=== PATIENT | male | born 1950 | race Caucasian/White ===

== ENCOUNTER 2016-04-24 22:50 | Emergency (ER) | payer MEDICARE, MEDICAID ==
[2016-04-25] MEDS ORDERED: ACETAMINOPHEN 325 MG TAB As Ordered ONE (00:10)
[2016-04-25 00:39] LABS: BASO # 0.2 K/mm3 (0.0-0.2); BASO % 1.5 % (0.0-1.0); EOS # 0.3 K/mm3 (0.0-0.50); EOS % 2.2 % (0.0-3.0); LARGE UNSTAINED CELL # 0.4 K/mm3 (0.0-0.4); LARGE UNSTAINED CELL % 3.2 % (0.0-4.0); LYMPH # 5.6 K/mm3 (1.5-4.5); LYMPH % 43.3 % (24.0-44.0); MEAN CORPUSCULAR HEMOGLOBIN 29.9 pg (27.0-33.0); MEAN CORPUSCULAR HGB CONC 34.2 g/dl (32.0-36.5); MEAN CORPUSCULAR VOLUME 87.4 fl (80.0-96.0); MONO # 0.7 K/mm3 (0.0-0.8); MONO % 5.7 % (0.0-5.0); NEUTROPHILS # 5.3 K/mm3 (1.8-7.7); PLATELET COUNT, AUTOMATED 237 k/mm3 (150-450); RED CELL DISTRIBUTION WIDTH 14.1 % (11.5-14.5)
[2016-04-25 01:09] LABS: ALBUMIN 4.1 GM/DL (3.2-5.2); ALBUMIN/GLOBULIN RATIO 0.95 (1.00-1.93); ALKALINE PHOSPHATASE 64 U/L (45-117); ALT/SGPT 66 U/L (12-78); ANION GAP 7 MEQ/L (8-16); AST/SGOT 30 U/L (15-37); BILIRUBIN,DIRECT < 0.1 MG/DL (0.0-0.2); BILIRUBIN,TOTAL 0.3 MG/DL (0.2-1.0); BLOOD UREA NITROGEN 18 MG/DL (7-18); CALCIUM LEVEL 9.4 MG/DL (8.8-10.2); CARBON DIOXIDE LEVEL 30 MEQ/L (21-32); CHLORIDE LEVEL 101 MEQ/L (98-107); GLOMERULAR FILTRATION RATE > 60.0 (>49); GLUCOSE, FASTING 97 MG/DL (80-110); POTASSIUM SERUM 3.6 MEQ/L (3.5-5.1); SODIUM LEVEL 138 MEQ/L (136-145); TOTAL PROTEIN 8.4 GM/DL (6.4-8.2)
--- NOTE | 2016-04-25 01:31 | EDDOCDS ---
Nurse's Notes [facility] Name: Mark Robert Age: 65 yrs Sex: Male : 1950 Arrival Date: 04/24/2016 Time: 22:50 Bed Triage 3 Private MD: Ashli Fisher. Diagnosis: Generalized abdominal pain;Constipation Presentation: 04/24 22:54 Presenting complaint: Patient states: Patient reports pain in abdomen and back. Patient jmb reports pain has been present for a few days. Nothing has changed over past couple days. Patient denies taking anything for pain. Patient denies eating anything different that would cause abdominal pain. Adult Sepsis Screening: The patient does not have new or worsening altered mentation. Patient's respiratory rate is less than 22. Systolic blood pressure is greater than 100. Patient has a qSOFA score of 0- Negative Sepsis Screen. Suicide/Homicide risk assessment- the patient denies having any suicidal and/or homicidal ideations and does not present with any other emotional, behavioral or mental health complaints. Status: Patient is not a business services representative or dependent. Transition of care: patient was not received from another setting of care. 22:54 Acuity: KATHI Level 3 b 22:54 Method Of Arrival: Walkin/Carried/Asstd jmb Triage Assessment: 22:59 General: Appears in no apparent distress, Behavior is appropriate for age. Pain: jmb Location: back and abdomen Pain currently is 5 out of 10 on a pain scale. Neurological: Level of Consciousness is awake, alert, obeys commands, Oriented to person, place, time, Speech is normal, Facial symmetry appears normal, Facial symmetry: tongue is midline. Respiratory: Airway is patent Respiratory effort is even, unlabored, Respiratory pattern is regular, symmetrical. GI: Abdomen is non- distended. Derm: Skin is pink, warm & dry. Musculoskeletal: Range of motion intact in all extremities. Historical: - Allergies: No known drug Allergies; - Home Meds: 1. metformin 1,000 mg Oral tab 1 tab 2 times per day 2. Spiriva with HandiHaler 18 mcg Inhl CpDv 1 cap once daily 3. Vitamin D2 50,000 unit oral cap monthly 4. glipizide 5 mg Oral tab 1 tab once daily 5. cetirizine 10 mg oral tab 1 tab once daily 6. paroxetine HCl 40 mg Oral tab 1 tab once daily 7. doxazosin 8 mg oral tab 1 tab once daily 8. metoprolol tartrate 50 mg Oral tab 0.5 tab once daily 9. lisinopril 40 mg Oral tab 1 tab once daily 10. clopidogrel 75 mg oral tab 1 tab once daily 11. amlodipine 5 mg Oral tab 1 tab once daily 12. aspirin 81 mg Oral grps 1 tab once daily 13. lansoprazole 30 mg oral cpDR 14. glipizide 10 mg Oral tab 1 tab once daily 15. gemfibrozil 600 mg Oral tab 1 tab daily - PMHx: Anxiety; CAD; Depression; Diabetes - NIDDM: controlled; Hypertension; GERD; - PSHx: none; - Social history: Smoking status: Patient uses tobacco products, heavy tobacco smoker. No barriers to communication noted, The patient speaks fluent [place] Island[place], Speaks appropriately for age. - Family history: Not pertinent. - : The pt / caregiver states he / she is not on anticoagulants. Home medication list is obtained from the patient. - Exposure Risk Screening:: None identified. Screenin/06 00:58 Screening information is obtained from the patient. Fall risk: No risks identified. jmb Assistance ADL's: requires no assistance with activities of daily living. Abuse/DV Screen: The patient / caregiver reports he/she is: not in a situation that causes fear, pain or injury. Nutritional screening: No deficits noted. home support is adequate. 01:28 Advance Directives: Currently, there is no health care proxy. There is no active DNR jmb order. There is no living will. There is no Power of Connection Worker. Assessment: 00:58 General: Appears in no apparent distress, Behavior is appropriate for age, cooperative. jmb Pain: Location: abdomen and back Pain currently is 2 out of 10 on a pain scale. Neurological: Level of Consciousness is awake, alert, obeys commands, Oriented to person, place, time, Speech is normal, Facial symmetry appears normal, Facial symmetry: tongue is midline. Cardiovascular: Capillary refill < 3 seconds Heart tones present. Respiratory: Airway is patent Respiratory effort is even, Respiratory pattern is regular. GI: Abdomen is obese, Bowel sounds present X 4 quads. Abd is soft X 4 quads. Derm: Skin is pink, warm & dry. Musculoskeletal: Range of motion intact in all extremities. 01:28 General: Patient instructed on discharge instructions. Patient asked if there were any b questions regarding discharge, patient stated no. Patient signed discharge instructions. Patient discharged in stable condition.. Vital Signs: 04/24 22:52 BP 152 / 78; Pulse 68; Resp 18 S; Temp 96.3(O); Pulse Ox 98% on R/A; Weight 95.25 kg jmb (R); Height 5 ft. 7 in. (170.18 cm) (R); Pain 7/10; 04/25 01:28 BP 140 / 78; Pulse 70; Resp 18; Temp 97.0(O); Pulse Ox 98% on R/A; Pain 0/10; jmb 04/24 22:52 Body Mass Index 32.89 (95.25 kg, 170.18 cm) [facility] Vitals: 04/24 22:52 Log In Time: April 24, 2016 at 22:52. gr2 ED Course: 22:51 Patient visited by Jack Modi. gr2 22:51 Ashli Fisher. is Private Physician. gr2 22:51 Patient moved to Waiting gr2 22:53 Patient visited by Jack Modi. gr2 22:53 Patient moved to Pre RCE gr2 22:55 Triage Initiated jmb 23:10 Patient moved to Triage 3 jmb 23:40 Scotty Lim PA is PHCP. mo1 23:40 Stuart Jeronimo DO is Attending Physician. mo1 04/25 00:02 Patient visited by Scotty Lim PA. mo1 00:26 Basic Metabolic Profile Sent. jmb 00:26 CBC with Diff Sent. jmb 00:26 Lipase Sent. jmb 00:26 Liver Profile Sent. jmb 00:26 Urinalysis Sent. jmb 00:26 Urine Culture Sent. jmb 00:58 The patient / caregiver is instructed regarding the plan of care and ED course. jmb 00:58 No IV's were initiated during this patient's visit. No procedures done that require b assistance. Labs drawn. (by ED staff). Sent per order to lab. 01:00 Patient visited by Michele Ivy RN. jmb 01:24 Ashli Fisher. is Referral Physician. mo1 Administered Medications: 00:12 Drug: Acetaminophen 975 mg [acetaminophen 325 mg tablet (3 tabs)] Route: PO; jmb Order Results: Lab Order: Basic Metabolic Profile; SPEC'M 04/25/16 00:22 Test: GLUCOSE, FASTING; Value: 97; Range: 80-110; Units: MG/DL; Status: F Test: BLOOD UREA NITROGEN; Value: 18; Range: 7-18; Units: MG/DL; Status: F Test: CREATININE FOR GFR; Value: 0.80; Range: 0.70-1.30; Units: MG/DL; Status: F Test: GLOMERULAR FILTRATION RATE; Value: > 60.0; Range: >49; Status: F Test: SODIUM LEVEL; Value: 138; Range: 136-145; Units: MEQ/L; Status: F Test: POTASSIUM SERUM; Value: 3.6; Range: 3.5-5.1; Units: MEQ/L; Status: F Test: CHLORIDE LEVEL; Value: 101; Range: 98-107; Units: MEQ/L; Status: F Test: CARBON DIOXIDE LEVEL; Value: 30; Range: 21-32; Units: MEQ/L; Status: F Test: ANION GAP; Value: 7; Range: 8-16; Abnormal: Below low normal; Units: MEQ/L; Status: F Test: CALCIUM LEVEL; Value: 9.4; Range: 8.8-10.2; Units: MG/DL; Status: F Test Note: ; Units are mL/min/1.73 m2 Chronic Kidney Disease Staging per NKF: Stage I & II GFR >=60 Normal to Mildly Decreased Stage III GFR 30-59 Moderately Decreased Stage IV GFR 15-29 Severely Decreased Stage V GFR <15 Very Little GFR Left ESRD GFR <15 on [employer] Lab Order: CBC with Diff; SPEC'M 04/25/16 00:22 Test: WHITE BLOOD COUNT; Value: 12.0; Range: 4.0-10.0; Abnormal: Above high normal; Units: K/mm3; Status: F Test: RED BLOOD COUNT; Value: 4.92; Range: 4.30-6.10; Units: M/mm3; Status: F Test: HEMOGLOBIN; Value: 14.7; Range: 14.0-18.0; Units: g/dl; Status: F Test: HEMATOCRIT; Value: 43.0; Range: 42.0-52.0; Units: %; Status: F Test: MEAN CORPUSCULAR VOLUME; Value: 87.4; Range: 80.0-96.0; Units: fl; Status: F Test: MEAN CORPUSCULAR HEMOGLOBIN; Value: 29.9; Range: 27.0-33.0; Units: pg; Status: F Test: MEAN CORPUSCULAR HGB CONC; Value: 34.2; Range: 32.0-36.5; Units: g/dl; Status: F Test: RED CELL DISTRIBUTION WIDTH; Value: 14.1; Range: 11.5-14.5; Units: %; Status: F Test: PLATELET COUNT, AUTOMATED; Value: 237; Range: 150-450; Units: k/mm3; Status: F Test: NEUTROPHILS %; Value: 44.0; Range: 36.0-66.0; Units: %; Status: F Test: LYMPH %; Value: 43.3; Range: 24.0-44.0; Units: %; Status: F Test: MONO %; Value: 5.7; Range: 0.0-5.0; Abnormal: Above high normal; Units: %; Status: F Test: EOS %; Value: 2.2; Range: 0.0-3.0; Units: %; Status: F Test: BASO %; Value: 1.5; Range: 0.0-1.0; Abnormal: Above high normal; Units: %; Status: F Test: LARGE UNSTAINED CELL %; Value: 3.2; Range: 0.0-4.0; Units: %; Status: F Test: NEUTROPHILS #; Value: 5.3; Range: 1.8-7.7; Units: K/mm3; Status: F Test: LYMPH #; Value: 5.6; Range: 1.5-4.5; Abnormal: Above high normal; Units: K/mm3; Status: F Test: MONO #; Value: 0.7; Range: 0.0-0.8; Units: K/mm3; Status: F Test: EOS #; Value: 0.3; Range: 0.0-0.50; Units: K/mm3; Status: F Test: BASO #; Value: 0.2; Range: 0.0-0.2; Units: K/mm3; Status: F Test: LARGE UNSTAINED CELL #; Value: 0.4; Range: 0.0-0.4; Units: K/mm3; Status: F Test Note: ; A Pathologist review of this differential can help in the evaluation of a differential diagnosis. Please order a Pathologist Review (PATHREVCOMP) if deemed necessary. Results are subject to change if a Pathologist Review is performed. Lab Order: Lipase; SPEC'M 04/25/16 00:22 Test: LIPASE; Value: 317; Range: 73-393; Units: U/L; Status: F Lab Order: Liver Profile; SPEC'M 04/25/16 00:22 Test: AST/SGOT; Value: 30; Range: 15-37; Units: U/L; Status: F Test: ALT/SGPT; Value: 66; Range: 12-78; Units: U/L; Status: F Test: ALKALINE PHOSPHATASE; Value: 64; Range: 45-117; Units: U/L; Status: F Test: BILIRUBIN,TOTAL; Value: 0.3; Range: 0.2-1.0; Units: MG/DL; Status: F Test: BILIRUBIN,DIRECT; Value: < 0.1; Range: 0.0-0.2; Units: MG/DL; Status: F Test: TOTAL PROTEIN; Value: 8.4; Range: 6.4-8.2; Abnormal: Above high normal; Units: GM/DL; Status: F Test: ALBUMIN; Value: 4.1; Range: 3.2-5.2; Units: GM/DL; Status: F Test: ALBUMIN/GLOBULIN RATIO; Value: 0.95; Range: 1.00-1.93; Abnormal: Below low normal; Status: F Lab Order: Urinalysis; SPEC'M 04/25/16 00:17 Test: APPEARANCE, URINE; Value: CLEAR; Range: CLEAR; Status: F Test: COLOR, URINE; Value: STRAW; Range: YELLOW; Status: F Test: PH,URINE; Value: 6.0; Range: 5.0-9.0; Units: UNITS; Status: F Test: SPECIFIC GRAVITY URINE AUTO; Value: 1.005; Range: 1.002-1.035; Status: F Test: PROTEIN, URINE AUTO; Value: NEGATIVE; Range: NEGATIVE; Units: mg/dL; Status: F Test: GLUCOSE, URINE (UA) AUTO; Value: NEGATIVE; Range: NEGATIVE; Units: mg/dL; Status: F Test: KETONE, URINE AUTO; Value: NEGATIVE; Range: NEGATIVE; Units: mg/dL; Status: F Test: UROBILINOGEN, URINE AUTO; Value: 0.2; Range: 0.0-2.0; Units: mg/dL; Status: F Test: BILIRUBIN, URINE AUTO; Value: NEGATIVE; Range: NEGATIVE; Status: F Test: NITRITE, URINE AUTO; Value: NEGATIVE; Range: NEGATIVE; Status: F Test: LEUKOCYTE ESTERASE, URINE AUTO; Value: NEGATIVE; Range: NEGATIVE; Status: F Test: BLOOD, URINE BLOOD; Value: NEGATIVE; Range: NEGATIVE; Status: F Test: WBC, URINE AUTO; Value: 1; Range: 0-3; Units: /HPF; Status: F Test: RBC, URINE AUTO; Value: 3; Range: 0-3; Units: /HPF; Status: F Test: BACTERIA, URINE AUTO; Value: 1+; Range: NEGATIVE; Abnormal: Above high normal; Status: F Test: SQUAMOUS EPITHELIAL CELL UR AU; Value: 0; Range: 0-6; Units: /HPF; Status: F Test: HYALINE CAST, URINE AUTO; Value: 0; Range: 0-1; Units: /LPF; Status: F Outcome: :24 Discharge ordered by Provider. mo1 01:28 Discharge Assessment: Patient awake, alert and oriented x 3. No cognitive and/or jmb functional deficits noted. Patient verbalized understanding of disposition instructions. Patient awake and alert. obeys commands, Oriented to person, place and time. Patient verbalized understanding of disposition instructions. Patient has no functional deficits. patient administered narcotics - no. The following High Risk Discharge criteria are identified: None. Discharged to home ambulatory. Condition: stable. Discharge instructions given to patient, Instructed on discharge instructions, follow up and referral plans. medication usage, Demonstrated understanding of instructions, medications, Pt was receptive of discharge instructions/ teaching. No special radiology studies were completed. Property sent home with patient. 01:29 Patient left the ED. jmb Signatures: Jack Modi gr2 Scotty Lim PA PA mo1 Michele Ivy RN RN varshab Corrections: (The following items were deleted from the chart) 00:04 04/24 22:52 BP 152 / 78; Pulse 68bpm; Resp 18bpm; Spontaneous; Pulse Ox 98% RA; Temp jmb 93.8F Tympanic; 95.25 kg Reported; Height 5 ft. 7 in. Reported; BMI: 32.8; Pain 7/10; gr2 MTDD
--- NOTE | 2016-04-25 01:31 | EDDOCDS ---
Physician Documentation [facility] Name: Mark Robert Age: 65 yrs Sex: Male : 1950 Arrival Date: 04/24/2016 Time: 22:50 Bed Triage 3 Private MD: Ashli Fisher. Disposition: 04/25/16 01:24 Discharged to Home/Self Care. Impression: Generalized abdominal pain, Constipation. - Condition is Stable. - Discharge Instructions: Abdominal Pain, Adult, Constipation, Adult. - Prescriptions for Miralax 17 gram/dose - take 17 gram by ORAL route once daily As needed dilute in 8 ounces of water or juice; 1 bottle. - Medication Reconciliation, Local Pharmacy Hours form. - Follow up: Ashli Fisher.; When: Call to arrange an appointment; Reason: Recheck today's complaints, Continuance of care. - Problem is new. - Symptoms are unchanged. Historical: - Allergies: No known drug Allergies; - Home Meds: 1. metformin 1,000 mg Oral tab 1 tab 2 times per day 2. Spiriva with HandiHaler 18 mcg Inhl CpDv 1 cap once daily 3. Vitamin D2 50,000 unit oral cap monthly 4. glipizide 5 mg Oral tab 1 tab once daily 5. cetirizine 10 mg oral tab 1 tab once daily 6. paroxetine HCl 40 mg Oral tab 1 tab once daily 7. doxazosin 8 mg oral tab 1 tab once daily 8. metoprolol tartrate 50 mg Oral tab 0.5 tab once daily 9. lisinopril 40 mg Oral tab 1 tab once daily 10. clopidogrel 75 mg oral tab 1 tab once daily 11. amlodipine 5 mg Oral tab 1 tab once daily 12. aspirin 81 mg Oral grps 1 tab once daily 13. lansoprazole 30 mg oral cpDR 14. glipizide 10 mg Oral tab 1 tab once daily 15. gemfibrozil 600 mg Oral tab 1 tab daily - PMHx: Anxiety; CAD; Depression; Diabetes - NIDDM: controlled; Hypertension; GERD; - PSHx: none; - Social history: Smoking status: Patient uses tobacco products, heavy tobacco smoker. No barriers to communication noted, The patient speaks fluent Yoruba, Speaks appropriately for age. - Family history: Not pertinent. - : The pt / caregiver states he / she is not on anticoagulants. Home medication list is obtained from the patient. - Exposure Risk Screening:: None identified. Vital Signs: 04/24 22:52 BP 152 / 78; Pulse 68; Resp 18 S; Temp 96.3(O); Pulse Ox 98% on R/A; Weight 95.25 kg / jmb 209.99 lbs (R); Height 5 ft. 7 in. (170.18 cm) (R); Pain 7/10; 04/25 01:28 BP 140 / 78; Pulse 70; Resp 18; Temp 97.0(O); Pulse Ox 98% on R/A; Pain 0/10; jmb 04/24 22:52 Body Mass Index 32.89 (95.25 kg, 170.18 cm) [facility] MDM: 00:08 Acetaminophen Tablet 975 mg PO once ordered. mo1 00:10 Basic Metabolic Profile Ordered. EDMS 00:10 CBC with Diff Ordered. EDMS 00:10 Lipase Ordered. EDMS 00:10 Liver Profile Ordered. EDMS 00:10 Urinalysis Ordered. EDMS 00:10 Urine Culture Ordered. EDMS 00:10 Abdomen, Flat\E\Upright,PA Chest Ordered. EDMS 00:10 NOTHING BY MOUTH+DIET ordered. EDMS 00:59 Urinalysis Reviewed. mo1 01:13 Financial registration complete. [facility] 01:17 Basic Metabolic Profile Reviewed. mo1 01:17 CBC with Diff Reviewed. mo1 01:17 Liver Profile Reviewed. mo1 01:17 Lipase Reviewed. mo1 Administered Medications: 00:12 Drug: Acetaminophen 975 mg [acetaminophen 325 mg tablet (3 tabs)] Route: PO; lorena Signatures: Dispatcher [employer] EDMS Scotty Lim PA PA mo1 Michele Ivy,RN RN Elyse Bryne [facility] MTDD
--- NOTE | 2016-04-25 08:41 | REP ---
Clinical: Epigastric and abdominal pain. Technique: Upright view of the chest with supine and upright views of the abdomen and pelvis. Findings: Frontal upright view of the chest demonstrates chronic areas of linear fibro atelectatic change in the right mid lung zone and left base without acute cardiopulmonary process or free air below the diaphragm to suspect pneumoperitoneum. Supine and upright views of the abdomen and pelvis demonstrate nonspecific bowel gas pattern without obstruction or perforation. Evidence for prior ventral hernia repair. No organomegaly. No abnormal calcifications. Skeletal structures normal for age. Impression: Nonspecific bowel gas pattern. Signed by Eddy Vee MD 04/25/2016 08:32 A
--- NOTE | 2016-04-27 02:31 | EDDOCDS ---
Physician Documentation [facility] Name: Mark Robert Age: 65 yrs Sex: Male : 1950 Arrival Date: 04/24/2016 Time: 22:50 Bed Triage 3 Private MD: Ashli Fisher. Disposition: 04/25/16 01:24 Discharged to Home/Self Care. Impression: Generalized abdominal pain, Constipation. - Condition is Stable. - Discharge Instructions: Abdominal Pain, Adult, Constipation, Adult. - Prescriptions for Miralax 17 gram/dose - take 17 gram by ORAL route once daily As needed dilute in 8 ounces of water or juice; 1 bottle. - Medication Reconciliation, Local Pharmacy Hours form. - Follow up: Ashli Fisher.; When: Call to arrange an appointment; Reason: Recheck today's complaints, Continuance of care. - Problem is new. - Symptoms are unchanged. Historical: - Allergies: No known drug Allergies; - Home Meds: 1. metformin 1,000 mg Oral tab 1 tab 2 times per day 2. Spiriva with HandiHaler 18 mcg Inhl CpDv 1 cap once daily 3. Vitamin D2 50,000 unit oral cap monthly 4. glipizide 5 mg Oral tab 1 tab once daily 5. cetirizine 10 mg oral tab 1 tab once daily 6. paroxetine HCl 40 mg Oral tab 1 tab once daily 7. doxazosin 8 mg oral tab 1 tab once daily 8. metoprolol tartrate 50 mg Oral tab 0.5 tab once daily 9. lisinopril 40 mg Oral tab 1 tab once daily 10. clopidogrel 75 mg oral tab 1 tab once daily 11. amlodipine 5 mg Oral tab 1 tab once daily 12. aspirin 81 mg Oral grps 1 tab once daily 13. lansoprazole 30 mg oral cpDR 14. glipizide 10 mg Oral tab 1 tab once daily 15. gemfibrozil 600 mg Oral tab 1 tab daily - PMHx: Anxiety; CAD; Depression; Diabetes - NIDDM: controlled; Hypertension; GERD; - PSHx: none; - Social history: Smoking status: Patient uses tobacco products, heavy tobacco smoker. No barriers to communication noted, The patient speaks fluent [place], Speaks appropriately for age. - Family history: Not pertinent. - : The pt / caregiver states he / she is not on anticoagulants. Home medication list is obtained from the patient. - Exposure Risk Screening:: None identified. Vital Signs: 04/24 22:52 BP 152 / 78; Pulse 68; Resp 18 S; Temp 96.3(O); Pulse Ox 98% on R/A; Weight 95.25 kg / jmb 209.99 lbs (R); Height 5 ft. 7 in. (170.18 cm) (R); Pain 7/10; 04/25 01:28 BP 140 / 78; Pulse 70; Resp 18; Temp 97.0(O); Pulse Ox 98% on R/A; Pain 0/10; jmb 04/24 22:52 Body Mass Index 32.89 (95.25 kg, 170.18 cm) [facility] MDM: 00:08 Acetaminophen Tablet 975 mg PO once ordered. mo1 00:10 Basic Metabolic Profile Ordered. EDMS 00:10 CBC with Diff Ordered. EDMS 00:10 Lipase Ordered. EDMS 00:10 Liver Profile Ordered. EDMS 00:10 Urinalysis Ordered. EDMS 00:10 Urine Culture Ordered. EDMS 00:10 Abdomen, Flat\E\Upright,PA Chest Ordered. EDMS 00:10 NOTHING BY MOUTH+DIET ordered. EDMS 00:59 Urinalysis Reviewed. mo1 01:13 Financial registration complete. [facility] 01:17 Basic Metabolic Profile Reviewed. mo1 01:17 CBC with Diff Reviewed. mo1 01:17 Liver Profile Reviewed. mo1 01:17 Lipase Reviewed. mo1 02:02 [facility] Payment Agreement was scanned into [employer] and attached to record. [facility] 08:13 T-Sheet-- Draft Copy was scanned into [employer] and attached to record. gb Administered Medications: 00:12 Drug: Acetaminophen 975 mg [acetaminophen 325 mg tablet (3 tabs)] Route: PO; lorena Signatures: Dispatcher [employer] EDAL Meceh Vigil, Reg Reg gb Scotty Lim PA PA mo1 Michele Ivy,MADELIN RN Elyse Byrne [facility] The chart was reviewed and I authenticate all verbal orders and agree with the evaluation and treatment provided.Attachments: 02:02 [facility] Payment Agreement [facility] 08:13 T-Sheet-- Draft Copy gb Chart Complete MTDD
--- NOTE | 2016-04-27 02:31 | EDDOCDS ---
Physician Documentation [facility] Name: Mark Robert Age: 65 yrs Sex: Male : 1950 Arrival Date: 04/24/2016 Time: 22:50 Bed Triage 3 Private MD: Ashli Fisher. Disposition: 04/25/16 01:24 Discharged to Home/Self Care. Impression: Generalized abdominal pain, Constipation. - Condition is Stable. - Discharge Instructions: Abdominal Pain, Adult, Constipation, Adult. - Prescriptions for Miralax 17 gram/dose - take 17 gram by ORAL route once daily As needed dilute in 8 ounces of water or juice; 1 bottle. - Medication Reconciliation, Local Pharmacy Hours form. - Follow up: Ashli Fisher.; When: Call to arrange an appointment; Reason: Recheck today's complaints, Continuance of care. - Problem is new. - Symptoms are unchanged. Historical: - Allergies: No known drug Allergies; - Home Meds: 1. metformin 1,000 mg Oral tab 1 tab 2 times per day 2. Spiriva with HandiHaler 18 mcg Inhl CpDv 1 cap once daily 3. Vitamin D2 50,000 unit oral cap monthly 4. glipizide 5 mg Oral tab 1 tab once daily 5. cetirizine 10 mg oral tab 1 tab once daily 6. paroxetine HCl 40 mg Oral tab 1 tab once daily 7. doxazosin 8 mg oral tab 1 tab once daily 8. metoprolol tartrate 50 mg Oral tab 0.5 tab once daily 9. lisinopril 40 mg Oral tab 1 tab once daily 10. clopidogrel 75 mg oral tab 1 tab once daily 11. amlodipine 5 mg Oral tab 1 tab once daily 12. aspirin 81 mg Oral grps 1 tab once daily 13. lansoprazole 30 mg oral cpDR 14. glipizide 10 mg Oral tab 1 tab once daily 15. gemfibrozil 600 mg Oral tab 1 tab daily - PMHx: Anxiety; CAD; Depression; Diabetes - NIDDM: controlled; Hypertension; GERD; - PSHx: none; - Social history: Smoking status: Patient uses tobacco products, heavy tobacco smoker. No barriers to communication noted, The patient speaks fluent Wolof, Speaks appropriately for age. - Family history: Not pertinent. - : The pt / caregiver states he / she is not on anticoagulants. Home medication list is obtained from the patient. - Exposure Risk Screening:: None identified. Vital Signs: 04/24 22:52 BP 152 / 78; Pulse 68; Resp 18 S; Temp 96.3(O); Pulse Ox 98% on R/A; Weight 95.25 kg / jmb 209.99 lbs (R); Height 5 ft. 7 in. (170.18 cm) (R); Pain 7/10; 04/25 01:28 BP 140 / 78; Pulse 70; Resp 18; Temp 97.0(O); Pulse Ox 98% on R/A; Pain 0/10; jmb 04/24 22:52 Body Mass Index 32.89 (95.25 kg, 170.18 cm) [facility] MDM: 00:08 Acetaminophen Tablet 975 mg PO once ordered. mo1 00:10 Basic Metabolic Profile Ordered. EDMS 00:10 CBC with Diff Ordered. EDMS 00:10 Lipase Ordered. EDMS 00:10 Liver Profile Ordered. EDMS 00:10 Urinalysis Ordered. EDMS 00:10 Urine Culture Ordered. EDMS 00:10 Abdomen, Flat\E\Upright,PA Chest Ordered. EDMS 00:10 NOTHING BY MOUTH+DIET ordered. EDMS 00:59 Urinalysis Reviewed. mo1 01:13 Financial registration complete. [facility] 01:17 Basic Metabolic Profile Reviewed. mo1 01:17 CBC with Diff Reviewed. mo1 01:17 Liver Profile Reviewed. mo1 01:17 Lipase Reviewed. mo1 02:02 [facility] Payment Agreement was scanned into [employer] and attached to record. [facility] 08:13 T-Sheet-- Draft Copy was scanned into [employer] and attached to record. gb Administered Medications: 00:12 Drug: Acetaminophen 975 mg [acetaminophen 325 mg tablet (3 tabs)] Route: PO; lorena Signatures: Dispatcher [employer] EDWI Meche Vigil, Reg Reg gb Scotty Lim PA PA mo1 Michele Ivy,MADELIN RN Elyse Byrne [facility] The chart was reviewed and I authenticate all verbal orders and agree with the evaluation and treatment provided.Attachments: 02:02 [facility] Payment Agreement [facility] 08:13 T-Sheet-- Draft Copy gb Chart Complete MTDD
--- NOTE | 2016-04-27 02:31 | EDDOCDS ---
Nurse's Notes [facility] Name: Mark Robert Age: 65 yrs Sex: Male : 1950 Arrival Date: 04/24/2016 Time: 22:50 Bed Triage 3 Private MD: Ashli Fisher. Diagnosis: Generalized abdominal pain;Constipation Presentation: 04/24 22:54 Presenting complaint: Patient states: Patient reports pain in abdomen and back. Patient jmb reports pain has been present for a few days. Nothing has changed over past couple days. Patient denies taking anything for pain. Patient denies eating anything different that would cause abdominal pain. Adult Sepsis Screening: The patient does not have new or worsening altered mentation. Patient's respiratory rate is less than 22. Systolic blood pressure is greater than 100. Patient has a qSOFA score of 0- Negative Sepsis Screen. Suicide/Homicide risk assessment- the patient denies having any suicidal and/or homicidal ideations and does not present with any other emotional, behavioral or mental health complaints. Status: Patient is not a marketing services rep or dependent. Transition of care: patient was not received from another setting of care. 22:54 Acuity: KATHI Level 3 b 22:54 Method Of Arrival: Walkin/Carried/Asstd jmb Triage Assessment: 22:59 General: Appears in no apparent distress, Behavior is appropriate for age. Pain: jmb Location: back and abdomen Pain currently is 5 out of 10 on a pain scale. Neurological: Level of Consciousness is awake, alert, obeys commands, Oriented to person, place, time, Speech is normal, Facial symmetry appears normal, Facial symmetry: tongue is midline. Respiratory: Airway is patent Respiratory effort is even, unlabored, Respiratory pattern is regular, symmetrical. GI: Abdomen is non- distended. Derm: Skin is pink, warm & dry. Musculoskeletal: Range of motion intact in all extremities. Historical: - Allergies: No known drug Allergies; - Home Meds: 1. metformin 1,000 mg Oral tab 1 tab 2 times per day 2. Spiriva with HandiHaler 18 mcg Inhl CpDv 1 cap once daily 3. Vitamin D2 50,000 unit oral cap monthly 4. glipizide 5 mg Oral tab 1 tab once daily 5. cetirizine 10 mg oral tab 1 tab once daily 6. paroxetine HCl 40 mg Oral tab 1 tab once daily 7. doxazosin 8 mg oral tab 1 tab once daily 8. metoprolol tartrate 50 mg Oral tab 0.5 tab once daily 9. lisinopril 40 mg Oral tab 1 tab once daily 10. clopidogrel 75 mg oral tab 1 tab once daily 11. amlodipine 5 mg Oral tab 1 tab once daily 12. aspirin 81 mg Oral grps 1 tab once daily 13. lansoprazole 30 mg oral cpDR 14. glipizide 10 mg Oral tab 1 tab once daily 15. gemfibrozil 600 mg Oral tab 1 tab daily - PMHx: Anxiety; CAD; Depression; Diabetes - NIDDM: controlled; Hypertension; GERD; - PSHx: none; - Social history: Smoking status: Patient uses tobacco products, heavy tobacco smoker. No barriers to communication noted, The patient speaks fluent Andorran, Speaks appropriately for age. - Family history: Not pertinent. - : The pt / caregiver states he / she is not on anticoagulants. Home medication list is obtained from the patient. - Exposure Risk Screening:: None identified. Screenin/06 00:58 Screening information is obtained from the patient. Fall risk: No risks identified. jmb Assistance ADL's: requires no assistance with activities of daily living. Abuse/DV Screen: The patient / caregiver reports he/she is: not in a situation that causes fear, pain or injury. Nutritional screening: No deficits noted. home support is adequate. 01:28 Advance Directives: Currently, there is no health care proxy. There is no active DNR jmb order. There is no living will. There is no Power of Turbine Technician. Assessment: 00:58 General: Appears in no apparent distress, Behavior is appropriate for age, cooperative. jmb Pain: Location: abdomen and back Pain currently is 2 out of 10 on a pain scale. Neurological: Level of Consciousness is awake, alert, obeys commands, Oriented to person, place, time, Speech is normal, Facial symmetry appears normal, Facial symmetry: tongue is midline. Cardiovascular: Capillary refill < 3 seconds Heart tones present. Respiratory: Airway is patent Respiratory effort is even, Respiratory pattern is regular. GI: Abdomen is obese, Bowel sounds present X 4 quads. Abd is soft X 4 quads. Derm: Skin is pink, warm & dry. Musculoskeletal: Range of motion intact in all extremities. 01:28 General: Patient instructed on discharge instructions. Patient asked if there were any b questions regarding discharge, patient stated no. Patient signed discharge instructions. Patient discharged in stable condition.. Vital Signs: 04/24 22:52 BP 152 / 78; Pulse 68; Resp 18 S; Temp 96.3(O); Pulse Ox 98% on R/A; Weight 95.25 kg jm (R); Height 5 ft. 7 in. (170.18 cm) (R); Pain 7/10; 04/25 01:28 BP 140 / 78; Pulse 70; Resp 18; Temp 97.0(O); Pulse Ox 98% on R/A; Pain 0/10; jmb 04/24 22:52 Body Mass Index 32.89 (95.25 kg, 170.18 cm) [facility] Vitals: 04/24 22:52 Log In Time: April 24, 2016 at 22:52. gr2 ED Course: 22:51 Patient visited by Jack Modi. gr2 22:51 Ashli Fisher. is Private Physician. gr2 22:51 Patient moved to Waiting gr2 22:53 Patient visited by Jack Modi. gr2 22:53 Patient moved to Pre RCE gr2 22:55 Triage Initiated jmb 23:10 Patient moved to Triage 3 jmb 23:40 Scotty Lim PA is PHCP. mo1 23:40 Stuart Jeronimo DO is Attending Physician. mo1 04/25 00:02 Patient visited by Scotty Lim PA. mo1 00:26 Basic Metabolic Profile Sent. jmb 00:26 CBC with Diff Sent. jmb 00:26 Lipase Sent. jmb 00:26 Liver Profile Sent. jmb 00:26 Urinalysis Sent. jmb 00:26 Urine Culture Sent. jmb 00:58 The patient / caregiver is instructed regarding the plan of care and ED course. jmb 00:58 No IV's were initiated during this patient's visit. No procedures done that require b assistance. Labs drawn. (by ED staff). Sent per order to lab. 01:00 Patient visited by Michele Ivy RN. jmb 01:24 Ashli Fisher. is Referral Physician. mo1 02:02 [facility] Payment Agreement was scanned into [email or web address] and attached to record. [facility] 08:13 T-Sheet-- Draft Copy was scanned into [email or web address] and attached to record. gb 08:42 Abdomen, Flat\E\Upright,PA Chest Returned. EDMS Administered Medications: 00:12 Drug: Acetaminophen 975 mg [acetaminophen 325 mg tablet (3 tabs)] Route: PO; jmb Order Results: Lab Order: Basic Metabolic Profile; SPEC'M 04/25/16 00:22 Test: GLUCOSE, FASTING; Value: 97; Range: 80-110; Units: MG/DL; Status: F Test: BLOOD UREA NITROGEN; Value: 18; Range: 7-18; Units: MG/DL; Status: F Test: CREATININE FOR GFR; Value: 0.80; Range: 0.70-1.30; Units: MG/DL; Status: F Test: GLOMERULAR FILTRATION RATE; Value: > 60.0; Range: >49; Status: F Test: SODIUM LEVEL; Value: 138; Range: 136-145; Units: MEQ/L; Status: F Test: POTASSIUM SERUM; Value: 3.6; Range: 3.5-5.1; Units: MEQ/L; Status: F Test: CHLORIDE LEVEL; Value: 101; Range: 98-107; Units: MEQ/L; Status: F Test: CARBON DIOXIDE LEVEL; Value: 30; Range: 21-32; Units: MEQ/L; Status: F Test: ANION GAP; Value: 7; Range: 8-16; Abnormal: Below low normal; Units: MEQ/L; Status: F Test: CALCIUM LEVEL; Value: 9.4; Range: 8.8-10.2; Units: MG/DL; Status: F Test Note: ; Units are mL/min/1.73 m2 Chronic Kidney Disease Staging per NKF: Stage I & II GFR >=60 Normal to Mildly Decreased Stage III GFR 30-59 Moderately Decreased Stage IV GFR 15-29 Severely Decreased Stage V GFR <15 Very Little GFR Left ESRD GFR <15 on CODING COMPLIANCE SPECIALIST Lab Order: CBC with Diff; SPEC'M 04/25/16 00:22 Test: WHITE BLOOD COUNT; Value: 12.0; Range: 4.0-10.0; Abnormal: Above high normal; Units: K/mm3; Status: F Test: RED BLOOD COUNT; Value: 4.92; Range: 4.30-6.10; Units: M/mm3; Status: F Test: HEMOGLOBIN; Value: 14.7; Range: 14.0-18.0; Units: g/dl; Status: F Test: HEMATOCRIT; Value: 43.0; Range: 42.0-52.0; Units: %; Status: F Test: MEAN CORPUSCULAR VOLUME; Value: 87.4; Range: 80.0-96.0; Units: fl; Status: F Test: MEAN CORPUSCULAR HEMOGLOBIN; Value: 29.9; Range: 27.0-33.0; Units: pg; Status: F Test: MEAN CORPUSCULAR HGB CONC; Value: 34.2; Range: 32.0-36.5; Units: g/dl; Status: F Test: RED CELL DISTRIBUTION WIDTH; Value: 14.1; Range: 11.5-14.5; Units: %; Status: F Test: PLATELET COUNT, AUTOMATED; Value: 237; Range: 150-450; Units: k/mm3; Status: F Test: NEUTROPHILS %; Value: 44.0; Range: 36.0-66.0; Units: %; Status: F Test: LYMPH %; Value: 43.3; Range: 24.0-44.0; Units: %; Status: F Test: MONO %; Value: 5.7; Range: 0.0-5.0; Abnormal: Above high normal; Units: %; Status: F Test: EOS %; Value: 2.2; Range: 0.0-3.0; Units: %; Status: F Test: BASO %; Value: 1.5; Range: 0.0-1.0; Abnormal: Above high normal; Units: %; Status: F Test: LARGE UNSTAINED CELL %; Value: 3.2; Range: 0.0-4.0; Units: %; Status: F Test: NEUTROPHILS #; Value: 5.3; Range: 1.8-7.7; Units: K/mm3; Status: F Test: LYMPH #; Value: 5.6; Range: 1.5-4.5; Abnormal: Above high normal; Units: K/mm3; Status: F Test: MONO #; Value: 0.7; Range: 0.0-0.8; Units: K/mm3; Status: F Test: EOS #; Value: 0.3; Range: 0.0-0.50; Units: K/mm3; Status: F Test: BASO #; Value: 0.2; Range: 0.0-0.2; Units: K/mm3; Status: F Test: LARGE UNSTAINED CELL #; Value: 0.4; Range: 0.0-0.4; Units: K/mm3; Status: F Test Note: ; A Pathologist review of this differential can help in the evaluation of a differential diagnosis. Please order a Pathologist Review (PATHREVCOMP) if deemed necessary. Results are subject to change if a Pathologist Review is performed. Lab Order: Lipase; SPEC'M 04/25/16 00:22 Test: LIPASE; Value: 317; Range: 73-393; Units: U/L; Status: F Lab Order: Liver Profile; SPEC'M 04/25/16 00:22 Test: AST/SGOT; Value: 30; Range: 15-37; Units: U/L; Status: F Test: ALT/SGPT; Value: 66; Range: 12-78; Units: U/L; Status: F Test: ALKALINE PHOSPHATASE; Value: 64; Range: 45-117; Units: U/L; Status: F Test: BILIRUBIN,TOTAL; Value: 0.3; Range: 0.2-1.0; Units: MG/DL; Status: F Test: BILIRUBIN,DIRECT; Value: < 0.1; Range: 0.0-0.2; Units: MG/DL; Status: F Test: TOTAL PROTEIN; Value: 8.4; Range: 6.4-8.2; Abnormal: Above high normal; Units: GM/DL; Status: F Test: ALBUMIN; Value: 4.1; Range: 3.2-5.2; Units: GM/DL; Status: F Test: ALBUMIN/GLOBULIN RATIO; Value: 0.95; Range: 1.00-1.93; Abnormal: Below low normal; Status: F Lab Order: Urinalysis; SPEC'M 04/25/16 00:17 Test: APPEARANCE, URINE; Value: CLEAR; Range: CLEAR; Status: F Test: COLOR, URINE; Value: STRAW; Range: YELLOW; Status: F Test: PH,URINE; Value: 6.0; Range: 5.0-9.0; Units: UNITS; Status: F Test: SPECIFIC GRAVITY URINE AUTO; Value: 1.005; Range: 1.002-1.035; Status: F Test: PROTEIN, URINE AUTO; Value: NEGATIVE; Range: NEGATIVE; Units: mg/dL; Status: F Test: GLUCOSE, URINE (UA) AUTO; Value: NEGATIVE; Range: NEGATIVE; Units: mg/dL; Status: F Test: KETONE, URINE AUTO; Value: NEGATIVE; Range: NEGATIVE; Units: mg/dL; Status: F Test: UROBILINOGEN, URINE AUTO; Value: 0.2; Range: 0.0-2.0; Units: mg/dL; Status: F Test: BILIRUBIN, URINE AUTO; Value: NEGATIVE; Range: NEGATIVE; Status: F Test: NITRITE, URINE AUTO; Value: NEGATIVE; Range: NEGATIVE; Status: F Test: LEUKOCYTE ESTERASE, URINE AUTO; Value: NEGATIVE; Range: NEGATIVE; Status: F Test: BLOOD, URINE BLOOD; Value: NEGATIVE; Range: NEGATIVE; Status: F Test: WBC, URINE AUTO; Value: 1; Range: 0-3; Units: /HPF; Status: F Test: RBC, URINE AUTO; Value: 3; Range: 0-3; Units: /HPF; Status: F Test: BACTERIA, URINE AUTO; Value: 1+; Range: NEGATIVE; Abnormal: Above high normal; Status: F Test: SQUAMOUS EPITHELIAL CELL UR AU; Value: 0; Range: 0-6; Units: /HPF; Status: F Test: HYALINE CAST, URINE AUTO; Value: 0; Range: 0-1; Units: /LPF; Status: F Lab Order: Urine Culture; SPEC'M 04/25/16 00:17 Test: URINE CULTURE; Value: URINE CULTURE RESULT NO GROWTH; Status: F Radiology Order: Abdomen, Flat\E\Upright,PA Chest Test: Abdomen, Flat\E\Upright,PA Chest REASON FOR EXAMINATION: Abdomen Pain; Clinical: Epigastric and abdominal pain.; ; Technique: Upright view of the chest with supine and upright views of the; abdomen and pelvis.; ; Findings: Frontal upright view of the chest demonstrates chronic areas of linear; fibro atelectatic change in the right mid lung zone and left base without acute; cardiopulmonary process or free air below the diaphragm to suspect; pneumoperitoneum. Supine and upright views of the abdomen and pelvis demonstrate; nonspecific bowel gas pattern without obstruction or perforation. Evidence for; prior ventral hernia repair. No organomegaly. No abnormal calcifications.; Skeletal structures normal for age.; ; Impression:; Nonspecific bowel gas pattern.; ; ; Signed by; Eddy Vee MD 04/25/2016 08:32 A; Outcome: 01:24 Discharge ordered by Provider. mo1 01:28 Discharge Assessment: Patient awake, alert and oriented x 3. No cognitive and/or jmb functional deficits noted. Patient verbalized understanding of disposition instructions. Patient awake and alert. obeys commands, Oriented to person, place and time. Patient verbalized understanding of disposition instructions. Patient has no functional deficits. patient administered narcotics - no. The following High Risk Discharge criteria are identified: None. Discharged to home ambulatory. Condition: stable. Discharge instructions given to patient, Instructed on discharge instructions, follow up and referral plans. medication usage, Demonstrated understanding of instructions, medications, Pt was receptive of discharge instructions/ teaching. No special radiology studies were completed. Property sent home with patient. 01:29 Patient left the ED. lorena Signatures: Dispatcher [employer] EDMS Meche Vigil, Reg Reg Jack Cuevas gr2 Scotty Lim PA PA mo1 Michele Ivy,MADELIN RN Elyse Byrne Corrections: (The following items were deleted from the chart) 00:04 01/05 22:52 BP 152 / 78; Pulse 68bpm; Resp 18bpm; Spontaneous; Pulse Ox 98% RA; Temp jmb 93.8F Tympanic; 95.25 kg Reported; Height 5 ft. 7 in. Reported; BMI: 32.8; Pain 7/10; gr2 Chart Complete MTDD
== END 2016-04-25 01:29 | disposition home or self-care (01) ==
LOC: M ED 22:50
DX: F41.9 Anxiety disorder, unspecified (principal); K21.9 Gastro-esophageal reflux disease without esophagitis; I25.10 Atherosclerotic heart disease of native coronary artery without angina pectoris; E11.9 Type 2 diabetes mellitus without complications; I10 Essential (primary) hypertension; Z72.0 Tobacco use; Z79.82 Long term (current) use of aspirin; Z79.899 Other long term (current) drug therapy

== ENCOUNTER 2017-03-04 00:30 | Emergency (ER) | payer MEDICARE, MEDICAID ==
[~2017-03-04] VITALS: Ht 170.2 cm; Wt 93.3 kg
[2017-03-04 00:45] VITALS: BP 102/64
[2017-03-04] MEDS ORDERED: PARO40TA2 (00:58)
[2017-03-04] MEDS ORDERED: DOXA1TAB49 (00:58)
[2017-03-04] MEDS ORDERED: MONT10TA2 (00:58)
[2017-03-04] MEDS ORDERED: RANI150T (00:58)
[2017-03-04] MEDS ORDERED: CLOP75TA2 (00:58)
[2017-03-04] MEDS ORDERED: GEMF600T (00:58)
[2017-03-04] MEDS ORDERED: METO50TA7 (00:58)
[2017-03-04] MEDS ORDERED: INCR1INH (00:58)
[2017-03-04] MEDS ORDERED: FARX1TAB3 (00:58)
[2017-03-04] MEDS ORDERED: GLIP10TA6 (00:58)
[2017-03-04] MEDS ORDERED: TRAD5TAB (00:58)
[2017-03-04] MEDS ORDERED: AMLO5TAB2 (00:58)
[2017-03-04] MEDS ORDERED: [UNRECOGNIZED DRUG - OTHER] (00:58)
[2017-03-04] MEDS ORDERED: METF10004 (00:58)
[2017-03-04] MEDS ORDERED: POLY1POW4 (00:58)
[2017-03-04] MEDS ORDERED: VITA1CAP40 (00:58)
[2017-03-04] MEDS ORDERED: LISI40TAB (00:58)
[2017-03-04] MEDS ORDERED: ASPI81TA18 (00:58)
[2017-03-04] MEDS ORDERED: CETI10TA (00:58)
== END 2017-03-04 03:45 | disposition left against medical advice (07) ==
LOC: M ED 00:30
DX: E11.649 Type 2 diabetes mellitus with hypoglycemia without coma (principal); Z53.21 Procedure and treatment not carried out due to patient leaving prior to being seen by health care provider

== ENCOUNTER → 2017-04-06 | Outpatient (CLI) | payer MEDICARE, MEDICAID ==
[~2017-04-06] MED LIST: AMLO5TAB2; ASPI81TA18; CETI10TA; CLOP75TA2; DOXA1TAB49; FARX1TAB3; GEMF600T; GLIP10TA6; INCR1INH; LISI40TAB; METF10004; METO50TA7; MONT10TA2; PARO40TA2; POLY1POW4; RANI150T; TRAD5TAB; VITA1CAP40; [UNRECOGNIZED DRUG - OTHER]
--- NOTE | 2017-04-06 12:06 | REP ---
BILATERAL SHOULDERS: Three views of bilateral shoulders performed. There is no acute fracture or dislocation. There is mild narrowing and spurring at the left glenohumeral joint. There is moderate narrowing and spurring at the left acromioclavicular joint. There is mild narrowing and spurring at the right glenohumeral joint. There is moderate narrowing and spurring at the right acromioclavicular joint. IMPRESSION: Bilateral degenerative changes as above. Signed by Lul Garcia MD 04/06/2017 05:57 P
--- NOTE | 2017-04-06 12:08 | REP ---
CERVICAL SPINE SERIES: Eight views of the cervical spine are performed. There is no definite fracture or dislocation. C7 is not optimally visualized. It is vaguely visualized on the swimmer's view. There is no prevertebral soft tissue swelling. Disc spaces are relatively well preserved. There is mild diffuse narrowing and sclerosis at the posterior facet joints. There is no compelling radiographic evidence for significant neural foraminal narrowing. IMPRESSION: Mild diffuse degenerative changes at the posterior facet joints. Signed by Lul Garcia MD 04/06/2017 05:57 P
--- NOTE | 2017-04-06 12:09 | REP ---
THORACIC SPINE: AP and lateral views of the thoracic spine are performed. There is no compression fracture or malalignment. There is normal thoracic kyphosis. There is mild diffuse spurring. There is mild disc space narrowing and subchondral sclerosis at all levels. The posterior elements are intact. IMPRESSION: Mild diffuse degenerative changes. Signed by Lul Garcia MD 04/06/2017 05:57 P
== END ==
LOC: M RAD 10:49
PROVIDERS: ATTEND Nurse Practitioner Adult Health
DX: M25.511 Pain in right shoulder (principal); M19.011 Primary osteoarthritis, right shoulder

== ENCOUNTER 2017-05-15 02:47 | Emergency (ER) | payer MEDICARE, MEDICAID | END 2017-05-15 03:59 | disposition left against medical advice (07) | LOC: M ED 02:47 | DX: H92.09 Otalgia, unspecified ear (principal); Z53.21 Procedure and treatment not carried out due to patient leaving prior to being seen by health care provider ==

== ENCOUNTER → 2017-05-19 | Outpatient (REF) | payer MEDICARE, MEDICAID ==
[2017-05-19 11:15] LABS: BASO # 0.1 10^3/uL (0.0-0.2); BASO % 0.4 % (0.0-1.0); EOS # 0.1 10^3/uL (0.0-0.50); EOS % 1.1 % (0.0-3.0); HEMATOCRIT 44.3 % (42.0-52.0); HEMOGLOBIN 14.7 g/dl (14.0-18.0); IMMATURE GRANULOCYTE % 0.3 % (0-0); LYMPH # 3.1 10^3/uL (1.5-4.5); LYMPH % 25.3 % (24.0-44.0); MEAN CORPUSCULAR HEMOGLOBIN 29.9 pg (27.0-33.0); MEAN CORPUSCULAR HGB CONC 33.2 g/dl (32.0-36.5); MONO # 0.8 10^3/uL (0.0-0.8); MONO % 6.6 % (0.0-5.0); NEUTROPHILS # 8.1 10^3/uL (1.8-7.7); NEUTROPHILS % 66.3 % (36.0-66.0); PLATELET COUNT, AUTOMATED 266 10^3/uL (150-450); RED BLOOD COUNT 4.92 10^6/uL (4.30-6.10); RED CELL DISTRIBUTION WIDTH 13.2 % (11.5-14.5); WHITE BLOOD COUNT 12.2 10^3/uL (4.0-10.0)
[2017-05-19 11:38] LABS: ALBUMIN 4.1 GM/DL (3.2-5.2); ALBUMIN/GLOBULIN RATIO 1.11 (1.00-1.93); ALKALINE PHOSPHATASE 70 U/L (45-117); ALT/SGPT 28 U/L (12-78); ANION GAP 7 MEQ/L (8-16); AST/SGOT 18 U/L (7-37); BILIRUBIN,TOTAL 0.3 MG/DL (0.2-1.0); BLOOD UREA NITROGEN 13 MG/DL (7-18); CALCIUM LEVEL 9.5 MG/DL (8.8-10.2); CARBON DIOXIDE LEVEL 30 MEQ/L (21-32); CHLORIDE LEVEL 104 MEQ/L (98-107); CHOLESTEROL LEVEL 181 MG/DL (<200); CHOLESTEROL RISK RATIO 3.934 (<5); CREATININE FOR GFR 0.72 MG/DL (0.70-1.30); GLOMERULAR FILTRATION RATE > 60.0 (>49); GLUCOSE, FASTING 119 MG/DL (70-100); HDL CHOLESTEROL 46 MG/DL (>40); LDL CHOLESTEROL 99.6 MG/DL (<100); NON-HDL-C 135 MG/DL; POTASSIUM SERUM 4.3 MEQ/L (3.5-5.1); SODIUM LEVEL 141 MEQ/L (136-145); TOTAL PROTEIN 7.8 GM/DL (6.4-8.2); TRIGLYCERIDES LEVEL 177 MG/DL (<150)
[2017-05-19 11:43] LABS: ESTIMATED AVERAGE GLUCOSE 169 MG/DL (60-110); HEMOGLOBIN A1c 7.5 %
[2017-05-19 11:50] LABS: CREATININE, URINE < 13.0 MG/DL; MALB URINE SIEMENS 22.3 MG/L
[2017-05-20 11:27] LABS: HIV 1&2 SCREEN CENTAUR NEGATIVE (NEGATIVE)
== END ==
LOC: M LAB REF 10:41
DX: E11.9 Type 2 diabetes mellitus without complications (principal)
CPT/HCPCS: 80053

== ENCOUNTER → 2017-05-28 | Outpatient (CLI) | payer MEDICARE, MEDICAID ==
[~2017-05-28] MED LIST changes: -AMLO5TAB2; -ASPI81TA18; -CETI10TA; -CLOP75TA2; -DOXA1TAB49; -FARX1TAB3; -GEMF600T; -GLIP10TA6; -INCR1INH; +ISOVUE-370 76% 100ML VIAL (Q9967) As Ordered; -LISI40TAB; -METF10004; -METO50TA7; -MONT10TA2; -PARO40TA2; -POLY1POW4; -RANI150T; -TRAD5TAB; -VITA1CAP40; -[UNRECOGNIZED DRUG - OTHER]
== END ==
LOC: M RAD 06:46
DX: Z12.2 Encounter for screening for malignant neoplasm of respiratory organs (principal); J98.4 Other disorders of lung; I70.0 Atherosclerosis of aorta; Z72.0 Tobacco use
CPT/HCPCS: Q9967

== ENCOUNTER 2017-05-29 15:04 | Emergency (ER) | payer MEDICARE, MEDICAID | END 2017-05-29 16:39 | disposition home or self-care (01) | LOC: M ED 15:04 | DX: M94.0 Chondrocostal junction syndrome [Tietze] (principal); E11.9 Type 2 diabetes mellitus without complications; I10 Essential (primary) hypertension; J44.9 Chronic obstructive pulmonary disease, unspecified; F41.9 Anxiety disorder, unspecified; F17.210 Nicotine dependence, cigarettes, uncomplicated; Z79.899 Other long term (current) drug therapy; Z79.82 Long term (current) use of aspirin; Z79.01 Long term (current) use of anticoagulants | CPT/HCPCS: 99283 ==

== ENCOUNTER → 2017-06-05 | Outpatient (CLI) | payer MEDICARE, MEDICAID | LOC: M RAD 12:43 | DX: R10.11 Right upper quadrant pain (principal); R07.81 Pleurodynia | CPT/HCPCS: 71111 ==

== ENCOUNTER 2017-06-17 00:32 | Emergency (ER) | payer MEDICARE, MEDICAID ==
[2017-06-17] MEDS: NS 500 ML IV (01:15)
[2017-06-17] MEDS: ONDANSETRON 4MG/2ML VIAL (J2405) IV (01:32)
[2017-06-17 01:33] LABS: HEMATOCRIT 38.2 % (42.0-52.0); HEMOGLOBIN 12.7 g/dl (14.0-18.0); MEAN CORPUSCULAR HEMOGLOBIN 29.8 pg (27.0-33.0); MEAN CORPUSCULAR HGB CONC 33.2 g/dl (32.0-36.5); MEAN CORPUSCULAR VOLUME 89.7 fl (80.0-96.0); PLATELET COUNT, AUTOMATED 270 10^3/uL (150-450); RED BLOOD COUNT 4.26 10^6/uL (4.30-6.10); RED CELL DISTRIBUTION WIDTH 13.5 % (11.5-14.5); WHITE BLOOD COUNT 17.4 10^3/uL (4.0-10.0)
[2017-06-17 01:35] LABS: ADD MANUAL DIFFER YES; DIFF SLIDE NUMBER 112; POSITIVE DIFF POS FLAG; POSITIVE MORPH POS FLAG
[2017-06-17] MEDS: MORPHINE 2 MG/ML 1ML SYRINGE (J2270) IV (01:35)
[2017-06-17 01:51] LABS: KETONE, URINE AUTO RFX NEGATIVE (NEGATIVE); MUCUS, URINE RFX SMALL (NEGATIVE); NITRITE, URINE AUTO RFX NEGATIVE (NEGATIVE); RBC, URINE AUTO RFX 72 /HPF (0-3); SPECIFIC GRAVITY UR AUTO RFX 1.017 (1.002-1.035); SQUAM EPITHELIAL CELL UR AURFX 0 /HPF (0-6)
[2017-06-17 01:52] LABS: LEUKOCYTE ESTERASE UR AUTO RFX TRACE (NEGATIVE); WBC, URINE AUTO RFX 14 /HPF (0-3)
[2017-06-17 01:57] LABS: ATYPICAL LYMPH 2 % (0-5); BASOPHILS 2 % (0-4); LYMPHOCYTES 26 % (16-52); MONOCYTES 6 % (0-8); NEUTROPHILS 64 % (35-75); PLATELET ESTIMATE NORMAL (NORMAL)
[2017-06-17 01:57] LABS: LACTIC ACID SEPSIS PROTOCOL 1.8 MMOL/L (0.4-2.0)
[2017-06-17 02:19] LABS: ALBUMIN 3.8 GM/DL (3.2-5.2); ALBUMIN/GLOBULIN RATIO 1.15 (1.00-1.93); ALKALINE PHOSPHATASE 59 U/L (45-117); ALT/SGPT 21 U/L (12-78); ANION GAP 8 MEQ/L (8-16); AST/SGOT 14 U/L (7-37); BILIRUBIN,DIRECT < 0.1 MG/DL (0.0-0.2); BILIRUBIN,TOTAL 0.2 MG/DL (0.2-1.0); BLOOD UREA NITROGEN 16 MG/DL (7-18); CALCIUM LEVEL 8.8 MG/DL (8.8-10.2); CARBON DIOXIDE LEVEL 28 MEQ/L (21-32); CHLORIDE LEVEL 104 MEQ/L (98-107); CPK CREATINE PHOSPHOKINASE 60 U/L (39-308); CREATININE FOR GFR 1.05 MG/DL (0.70-1.30); GLOMERULAR FILTRATION RATE > 60.0 (>49); GLUCOSE, FASTING 142 MG/DL (70-100); LIPASE 201 U/L (73-393); MB/CK RELATIVE INDEX 1.66 (< OR =4); POTASSIUM SERUM 4.1 MEQ/L (3.5-5.1); SODIUM LEVEL 140 MEQ/L (136-145); TOTAL PROTEIN 7.1 GM/DL (6.4-8.2); TROPONIN I < 0.02 NG/ML (< 0.10)
[2017-06-17 03:05] LABS: INR 1.02; PROTHROMBIN TIME 13.5 SECONDS (12.4-14.5)
[2017-06-17 03:06] LABS: PARTIAL THROMBOPLASTIN TIME 30.9 SECONDS (26.8-37.9)
[2017-06-17] MEDS: OXYCODONE/APAP 5MG/325MG(BULK FOR ED) 1 TABLET PO (03:38)
== END 2017-06-17 03:44 | disposition home or self-care (01) ==
LOC: M ED 00:32
DX: N28.89 Other specified disorders of kidney and ureter (principal); Z79.899 Other long term (current) drug therapy; Z79.82 Long term (current) use of aspirin; Z79.51 Long term (current) use of inhaled steroids; J30.89 Other allergic rhinitis; F17.210 Nicotine dependence, cigarettes, uncomplicated
CPT/HCPCS: J2405

== ENCOUNTER 2017-07-05 11:57 | Inpatient (IN) | payer MEDICARE, MEDICAID ==
[2017-07-05] MEDS: FAMOTIDINE IV BAG 20 MG in APPROPRIATE DILUENT 1 EA IV (12:38)
[2017-07-05] MEDS: methylPREDNISolone INJ 125 MG/2 ML VIAL (J2930) IV ×2 (12:38→18:16)
[2017-07-05] MEDS: diphenhydrAMINE INJ 50MG/ML VIAL (J1200) IV ×2 (12:38→20:04)
[2017-07-05] MEDS: CETACAINE SPRAY 5GM TOP (12:41)
[2017-07-05 12:43] LABS: BASO # 0.1 10^3/uL (0.0-0.2); BASO % 0.5 % (0.0-1.0); EOS # 0.1 10^3/uL (0.0-0.50); EOS % 0.8 % (0.0-3.0); HEMATOCRIT 34.4 % (42.0-52.0); HEMOGLOBIN 11.3 g/dl (14.0-18.0); IMMATURE GRANULOCYTE % 0.5 % (0-3.0); LYMPH # 3.9 10^3/uL (1.5-4.5); LYMPH % 26.3 % (24.0-44.0); MEAN CORPUSCULAR HEMOGLOBIN 28.7 pg (27.0-33.0); MEAN CORPUSCULAR HGB CONC 32.8 g/dl (32.0-36.5); MEAN CORPUSCULAR VOLUME 87.3 fl (80.0-96.0); MONO % 6.4 % (0.0-5.0); NEUTROPHILS # 9.8 10^3/uL (1.8-7.7); NEUTROPHILS % 65.5 % (36.0-66.0); PLATELET COUNT, AUTOMATED 453 10^3/uL (150-450); RED BLOOD COUNT 3.94 10^6/uL (4.30-6.10); RED CELL DISTRIBUTION WIDTH 13.6 % (11.5-14.5)
[2017-07-05 12:51] LABS: ANION GAP 8 MEQ/L (8-16); BLOOD UREA NITROGEN 16 MG/DL (7-18); CALCIUM LEVEL 9.3 MG/DL (8.8-10.2); CARBON DIOXIDE LEVEL 28 MEQ/L (21-32); CHLORIDE LEVEL 102 MEQ/L (98-107); CREATININE FOR GFR 0.74 MG/DL (0.70-1.30); GLOMERULAR FILTRATION RATE > 60.0 (>49); GLUCOSE, FASTING 228 MG/DL (70-100); POTASSIUM SERUM 4.1 MEQ/L (3.5-5.1); SODIUM LEVEL 138 MEQ/L (136-145)
[2017-07-05] MEDS: C1 ESTERASE INHIBITOR IV ×2 (13:10→14:10)
[2017-07-05] MEDS: DILUENT IV ×2 (13:10→14:10)
[2017-07-05 13:24] LABS: COMPLEMENT C4 39.9 MG/DL (10-40)
[2017-07-05] MEDS: EPINEPHrine INJ 1 MG/ML 1ML AMP SC ×2 (13:58→14:33)
[2017-07-05] MEDS ORDERED: DEXTROSE 50% 50 ML SYRINGE IV (14:45)
[2017-07-05] MEDS ORDERED: GLUCAGON FOR INJ 1 MG VIAL (J1610) SC (14:45)
[2017-07-05] MEDS ORDERED: ONDANSETRON 4MG/2ML VIAL (J2405) IV (14:45)
[2017-07-05] MEDS ORDERED: GLUCOSE 4 GM CHEW TABLET PO (14:45)
[2017-07-05 14:48] LABS: TYPE AND SCREEN 1 1
[2017-07-05 14:59] LABS: BEDSIDE GLUCOSE 174 MG/DL (80-115)
[2017-07-05] MEDS: NS 1,000 ML IV (16:33)
[2017-07-05 17:40] LABS: BEDSIDE GLUCOSE 228 MG/DL (80-115)
[2017-07-05 23:30] LABS: BEDSIDE GLUCOSE 281 MG/DL (80-115)
[2017-07-06] MEDS: methylPREDNISolone INJ 125 MG/2 ML VIAL (J2930) IV ×4 (00:34→18:00)
[2017-07-06] MEDS: diphenhydrAMINE INJ 50MG/ML VIAL (J1200) IV ×2 (03:16→12:00)
[2017-07-06] MEDS: NS 1,000 ML IV (03:16)
[2017-07-06 04:31] LABS: HEMATOCRIT 34.5 % (42.0-52.0); HEMOGLOBIN 11.5 g/dl (14.0-18.0); MEAN CORPUSCULAR HEMOGLOBIN 29.3 pg (27.0-33.0); MEAN CORPUSCULAR HGB CONC 33.3 g/dl (32.0-36.5); MEAN CORPUSCULAR VOLUME 87.8 fl (80.0-96.0); PLATELET COUNT, AUTOMATED 427 10^3/uL (150-450); RED BLOOD COUNT 3.93 10^6/uL (4.30-6.10); RED CELL DISTRIBUTION WIDTH 13.6 % (11.5-14.5)
[2017-07-06 04:46] LABS: ANION GAP 8 MEQ/L (8-16); BLOOD UREA NITROGEN 21 MG/DL (7-18); CALCIUM LEVEL 8.7 MG/DL (8.8-10.2); CARBON DIOXIDE LEVEL 25 MEQ/L (21-32); CHLORIDE LEVEL 106 MEQ/L (98-107); CREATININE FOR GFR 0.73 MG/DL (0.70-1.30); GLOMERULAR FILTRATION RATE > 60.0 (>49); GLUCOSE, FASTING 223 MG/DL (70-100); POTASSIUM SERUM 4.2 MEQ/L (3.5-5.1); SODIUM LEVEL 139 MEQ/L (136-145)
[2017-07-06] MEDS: ENOXAPARIN 40 MG/0.4 ML SYRINGE (J1650) SC (09:55)
[2017-07-06 12:05] LABS: BEDSIDE GLUCOSE 360 MG/DL (80-115)
[2017-07-06] MEDS ORDERED: DEXTROSE 50% 50 ML SYRINGE IV (12:45)
[2017-07-06] MEDS: diphenhydrAMINE 50 MG CAP PO ×2 (13:37→22:00)
[2017-07-06 16:48] LABS: BEDSIDE GLUCOSE 335 MG/DL (80-115)
[2017-07-06] MEDS: HumaLOG INSULIN (NovoLOG) PER UNIT SC ×2 (17:57→21:00)
[2017-07-06 21:02] LABS: BEDSIDE GLUCOSE 344 MG/DL (80-115)
[2017-07-07] MEDS: methylPREDNISolone INJ 125 MG/2 ML VIAL (J2930) IV ×4 (00:41→18:11)
[2017-07-07 04:32] LABS: HEMATOCRIT 32.3 % (42.0-52.0); HEMOGLOBIN 10.5 g/dl (14.0-18.0); MEAN CORPUSCULAR HEMOGLOBIN 28.7 pg (27.0-33.0); MEAN CORPUSCULAR HGB CONC 32.5 g/dl (32.0-36.5); MEAN CORPUSCULAR VOLUME 88.3 fl (80.0-96.0); PLATELET COUNT, AUTOMATED 370 10^3/uL (150-450); RED BLOOD COUNT 3.66 10^6/uL (4.30-6.10); RED CELL DISTRIBUTION WIDTH 13.7 % (11.5-14.5); WHITE BLOOD COUNT 18.6 10^3/uL (4.0-10.0)
[2017-07-07 04:44] LABS: ANION GAP 4 MEQ/L (8-16); BLOOD UREA NITROGEN 27 MG/DL (7-18); CALCIUM LEVEL 8.8 MG/DL (8.8-10.2); CARBON DIOXIDE LEVEL 29 MEQ/L (21-32); CHLORIDE LEVEL 106 MEQ/L (98-107); CREATININE FOR GFR 0.79 MG/DL (0.70-1.30); GLOMERULAR FILTRATION RATE > 60.0 (>49); GLUCOSE, FASTING 269 MG/DL (70-100); POTASSIUM SERUM 4.3 MEQ/L (3.5-5.1); SODIUM LEVEL 139 MEQ/L (136-145)
[2017-07-07] MEDS: diphenhydrAMINE 50 MG CAP PO ×3 (05:29→20:46)
[2017-07-07] MEDS: LEVEMIR (INSULIN DETEMIR) 1 UNITS/0.01ML SC (08:53)
[2017-07-07] MEDS: ENOXAPARIN 40 MG/0.4 ML SYRINGE (J1650) SC (08:54)
[2017-07-07] MEDS: HumaLOG INSULIN (NovoLOG) PER UNIT SC ×4 (08:54→20:47)
[2017-07-07 09:11] LABS: C REACTIVE PROTEIN QUANTITATIV 2.03 MG/DL (0.00-0.30)
[2017-07-07 11:42] LABS: BEDSIDE GLUCOSE 371 MG/DL (80-115)
[2017-07-07] MEDS: LevoFLOXacin IV 500 MG in APPROPRIATE DILUENT 1 EA IV (12:16)
[2017-07-07 16:58] LABS: BEDSIDE GLUCOSE 277 MG/DL (80-115)
[2017-07-07 20:43] LABS: BEDSIDE GLUCOSE 276 MG/DL (80-115)
[2017-07-08] MEDS: methylPREDNISolone INJ 125 MG/2 ML VIAL (J2930) IV ×2 (00:46→06:14)
[2017-07-08 05:44] LABS: HEMATOCRIT 34.1 % (42.0-52.0); HEMOGLOBIN 11.5 g/dl (14.0-18.0); MEAN CORPUSCULAR HEMOGLOBIN 29.6 pg (27.0-33.0); MEAN CORPUSCULAR HGB CONC 33.7 g/dl (32.0-36.5); MEAN CORPUSCULAR VOLUME 87.7 fl (80.0-96.0); PLATELET COUNT, AUTOMATED 332 10^3/uL (150-450); RED BLOOD COUNT 3.89 10^6/uL (4.30-6.10); RED CELL DISTRIBUTION WIDTH 13.5 % (11.5-14.5); WHITE BLOOD COUNT 17.6 10^3/uL (4.0-10.0)
[2017-07-08 06:02] LABS: ESTIMATED AVERAGE GLUCOSE 174 MG/DL (60-110); HEMOGLOBIN A1c 7.7 %
[2017-07-08 06:05] LABS: ANION GAP 8 MEQ/L (8-16); BLOOD UREA NITROGEN 25 MG/DL (7-18); CALCIUM LEVEL 9.1 MG/DL (8.8-10.2); CARBON DIOXIDE LEVEL 28 MEQ/L (21-32); CHLORIDE LEVEL 104 MEQ/L (98-107); CREATININE FOR GFR 0.78 MG/DL (0.70-1.30); GLOMERULAR FILTRATION RATE > 60.0 (>49); GLUCOSE, FASTING 263 MG/DL (70-100); POTASSIUM SERUM 3.7 MEQ/L (3.5-5.1); SODIUM LEVEL 140 MEQ/L (136-145)
[2017-07-08] MEDS: diphenhydrAMINE 50 MG CAP PO ×3 (06:13→22:00)
[2017-07-08] MEDS: LEVEMIR (INSULIN DETEMIR) 1 UNITS/0.01ML SC (08:14)
[2017-07-08] MEDS: HumaLOG INSULIN (NovoLOG) PER UNIT SC ×4 (08:15→21:00)
[2017-07-08] MEDS: ENOXAPARIN 40 MG/0.4 ML SYRINGE (J1650) SC (08:15)
[2017-07-08] MEDS ORDERED: hydrALAZINE INJ 20 MG/ML VIAL IV (10:00)
[2017-07-08] MEDS: hydrALAZINE INJ 20 MG/ML VIAL IV (10:20)
[2017-07-08] MEDS: LevoFLOXacin IV 500 MG in APPROPRIATE DILUENT 1 EA IV (10:20)
[2017-07-08] MEDS: **hydrALAZINE HCL** 25 MG TAB PO ×3 (10:58→23:26)
[2017-07-08] MEDS ORDERED: SLF 3 ML SYR IV (15:45)
[2017-07-08] MEDS: ASPIRIN 81 MG ENTERIC TAB PO (17:50)
[2017-07-08] MEDS: CLOPIDOGREL 75 MG TAB PO (17:50)
[2017-07-08] MEDS: MONTELUKAST 10 MG TAB PO (17:50)
[2017-07-08 17:58] LABS: BEDSIDE GLUCOSE 251 MG/DL (80-115)
[2017-07-08] MEDS: MIRALAX *UNIT DOSE* 17GM PACKET PO (18:59)
[2017-07-08] MEDS: PARoxetine 20 MG TAB PO (21:00)
[2017-07-08] MEDS: FAMOTIDINE 20 MG TAB PO (21:00)
[2017-07-08] MEDS: GEMFIBROZIL 600 MG TAB PO (21:00)
[2017-07-08] MEDS: DOXAZOSIN MESYLATE 4 MG TAB PO (21:00)
[2017-07-08] MEDS: SLF 3 ML SYR IV (22:00)
[2017-07-08 23:19] LABS: BEDSIDE GLUCOSE 125 MG/DL (80-115)
[2017-07-09] MEDS: diphenhydrAMINE 50 MG CAP PO (05:30)
[2017-07-09] MEDS: SLF 3 ML SYR IV (05:31)
[2017-07-09] MEDS: **hydrALAZINE HCL** 25 MG TAB PO (05:31)
[2017-07-09 05:51] LABS: HEMATOCRIT 37.1 % (42.0-52.0); HEMOGLOBIN 12.5 g/dl (14.0-18.0); MEAN CORPUSCULAR HEMOGLOBIN 28.9 pg (27.0-33.0); MEAN CORPUSCULAR HGB CONC 33.7 g/dl (32.0-36.5); MEAN CORPUSCULAR VOLUME 85.9 fl (80.0-96.0); PLATELET COUNT, AUTOMATED 330 10^3/uL (150-450); RED BLOOD COUNT 4.32 10^6/uL (4.30-6.10); RED CELL DISTRIBUTION WIDTH 13.4 % (11.5-14.5); WHITE BLOOD COUNT 15.2 10^3/uL (4.0-10.0)
[2017-07-09 06:09] LABS: ANION GAP 7 MEQ/L (8-16); BLOOD UREA NITROGEN 25 MG/DL (7-18); C REACTIVE PROTEIN QUANTITATIV 0.63 MG/DL (0.00-0.30); CALCIUM LEVEL 8.6 MG/DL (8.8-10.2); CARBON DIOXIDE LEVEL 28 MEQ/L (21-32); CHLORIDE LEVEL 105 MEQ/L (98-107); CREATININE FOR GFR 0.78 MG/DL (0.70-1.30); GLOMERULAR FILTRATION RATE > 60.0 (>49); GLUCOSE, FASTING 146 MG/DL (70-100); POTASSIUM SERUM 3.3 MEQ/L (3.5-5.1); SODIUM LEVEL 140 MEQ/L (136-145)
[2017-07-09] MEDS: HumaLOG INSULIN (NovoLOG) PER UNIT SC (07:59)
[2017-07-09] MEDS: POTASSIUM CHLORIDE 10 MEQ SR TABLET PO (09:14)
[2017-07-09] MEDS: ASPIRIN 81 MG ENTERIC TAB PO (09:15)
[2017-07-09] MEDS: CLOPIDOGREL 75 MG TAB PO (09:15)
[2017-07-09] MEDS: predniSONE 20 MG TAB PO (09:15)
[2017-07-09] MEDS: FAMOTIDINE 20 MG TAB PO (09:15)
[2017-07-09] MEDS: MONTELUKAST 10 MG TAB PO (09:15)
[2017-07-09] MEDS: GEMFIBROZIL 600 MG TAB PO (09:15)
[2017-07-09] MEDS: ENOXAPARIN 40 MG/0.4 ML SYRINGE (J1650) SC (09:16)
[2017-07-09] MEDS: LEVEMIR (INSULIN DETEMIR) 1 UNITS/0.01ML SC (09:17)
[2017-07-09] MEDS ORDERED: **hydrALAZINE HCL** 25 MG TAB PO (21:00)
[2017-07-10 15:57] LABS: BEDSIDE GLUCOSE 427 MG/DL (80-115)
[2017-07-10 15:57] LABS: BEDSIDE GLUCOSE 406 MG/DL (80-115)
[2017-07-11 00:07] LABS: LEGIONELLA ANTIGEN URINE Negative (Negative)
[2017-07-11 00:07] LABS: BODY FLUID CULTURE Not Indicated (.); ORGANISM ID Not indicated. (.); SPECIMEN SOURCE Urine (.); URINE STREP PNEUMONIAE ANTIGEN Negative (Negative)
== END 2017-07-09 10:54 | disposition home or self-care (01) | DRG 915 ==
LOC: M PCU 07-07 17:22 → M ED 11:57 → M ED INP 14:31 → M ICU 16:04
PROC: 0CJS8ZZ Inspection of Larynx, Via Natural or Artificial Opening Endoscopic (ICD-10-PCS; principal; 2017-07-05)
PROC: 30233K1 Transfusion of Nonautologous Frozen Plasma into Peripheral Vein, Percutaneous Approach (ICD-10-PCS; 2017-07-05)
DX: T78.3XXA Angioneurotic edema, initial encounter (principal); J18.9 Pneumonia, unspecified organism; T46.4X5A Adverse effect of angiotensin-converting-enzyme inhibitors, initial encounter; I10 Essential (primary) hypertension; K21.9 Gastro-esophageal reflux disease without esophagitis; E11.9 Type 2 diabetes mellitus without complications; Z79.84 Long term (current) use of oral hypoglycemic drugs; Z79.899 Other long term (current) drug therapy; Z79.02 Long term (current) use of antithrombotics/antiplatelets; Z88.8 Allergy status to other drugs, medicaments and biological substances; Z95.9 Presence of cardiac and vascular implant and graft, unspecified; Z79.82 Long term (current) use of aspirin

== ENCOUNTER → 2017-07-15 | Outpatient (CLI) | payer MEDICARE, MEDICAID ==
[2017-07-15 11:18] LABS: ANION GAP 10 MEQ/L (8-16); BLOOD UREA NITROGEN 19 MG/DL (7-18); CALCIUM LEVEL 8.4 MG/DL (8.8-10.2); CARBON DIOXIDE LEVEL 23 MEQ/L (21-32); CHLORIDE LEVEL 104 MEQ/L (98-107); CREATININE FOR GFR 0.73 MG/DL (0.70-1.30); GLOMERULAR FILTRATION RATE > 60.0 (>49); GLUCOSE, FASTING 148 MG/DL (70-100); POTASSIUM SERUM 3.9 MEQ/L (3.5-5.1); SODIUM LEVEL 137 MEQ/L (136-145)
== END ==
LOC: M LAB 09:59
DX: E87.6 Hypokalemia (principal)
CPT/HCPCS: 80048

== ENCOUNTER → 2017-08-04 | Outpatient (REF) | payer MEDICARE, MEDICAID ==
[2017-08-04 12:43] LABS: ANION GAP 7 MEQ/L (8-16); BLOOD UREA NITROGEN 10 MG/DL (7-18); CALCIUM LEVEL 9.2 MG/DL (8.8-10.2); CARBON DIOXIDE LEVEL 25 MEQ/L (21-32); CHLORIDE LEVEL 108 MEQ/L (98-107); CREATININE FOR GFR 0.79 MG/DL (0.70-1.30); GLOMERULAR FILTRATION RATE > 60.0 (>49); GLUCOSE, FASTING 132 MG/DL (70-100); POTASSIUM SERUM 4.3 MEQ/L (3.5-5.1); SODIUM LEVEL 140 MEQ/L (136-145)
== END ==
LOC: M LAB REF 11:56
DX: E87.6 Hypokalemia (principal)
CPT/HCPCS: 80048

== ENCOUNTER → 2017-09-16 | Outpatient (CLI) | payer MEDICARE | LOC: M RAD 10:28 | DX: S37.092A Other injury of left kidney, initial encounter (principal); X58.XXXA Exposure to other specified factors, initial encounter; Y92.89 Other specified places as the place of occurrence of the external cause; Y93.9 Activity, unspecified; Y99.9 Unspecified external cause status | CPT/HCPCS: Q9967 ==

== ENCOUNTER 2017-09-18 22:21 | Emergency (ER) | payer MEDICARE ==
[2017-09-18 23:49] LABS: HEMOGLOBIN 13.7 g/dl (13.5-17.5); MEAN CORPUSCULAR HEMOGLOBIN 29.3 pg (27.0-33.0); MEAN CORPUSCULAR HGB CONC 33.4 g/dl (32.0-36.5); MEAN CORPUSCULAR VOLUME 87.6 fl (80.0-96.0); PLATELET COUNT, AUTOMATED 233 10^3/uL (150-450); RED BLOOD COUNT 4.68 10^6/uL (4.30-6.10); RED CELL DISTRIBUTION WIDTH 15.4 % (11.5-14.5); WHITE BLOOD COUNT 12.7 10^3/uL (4.0-10.0)
[2017-09-18 23:52] LABS: ADD MANUAL DIFFER YES; DIFF SLIDE NUMBER 315; POSITIVE DIFF POS FLAG
[2017-09-19 00:06] LABS: INR 0.93; PROTHROMBIN TIME 12.5 SECONDS (12.4-14.5)
[2017-09-19 00:10] LABS: ANION GAP 6 MEQ/L (8-16); BLOOD UREA NITROGEN 19 MG/DL (7-18); C REACTIVE PROTEIN QUANTITATIV 1.59 MG/DL (0.00-0.30); CALCIUM LEVEL 8.8 MG/DL (8.8-10.2); CARBON DIOXIDE LEVEL 26 MEQ/L (21-32); CHLORIDE LEVEL 109 MEQ/L (98-107); CREATININE FOR GFR 0.75 MG/DL (0.70-1.30); GLOMERULAR FILTRATION RATE > 60.0 (>49); GLUCOSE, FASTING 91 MG/DL (70-100); POTASSIUM SERUM 3.3 MEQ/L (3.5-5.1); SODIUM LEVEL 141 MEQ/L (136-145)
[2017-09-19 00:20] LABS: BASOPHILS 1 % (0-4); EOSINOPHILS 2 % (0-5); LYMPHOCYTES 34 % (16-52); MONOCYTES 10 % (0-8); NEUTROPHILS 53 % (35-75); PLATELET ESTIMATE NORMAL (NORMAL)
[2017-09-19 00:21] LABS: ANISOCYTOSIS 1+
[2017-09-19 01:00] LABS: ERYTHROCYTE SEDIMENTATION RATE 52 mm/hr (0-20)
[2017-09-19] MEDS: CEPHALEXIN 500 MG CAP PO (01:30)
== END 2017-09-19 01:57 | disposition home or self-care (01) ==
LOC: M ED 22:21
DX: L03.116 Cellulitis of left lower limb (principal); I10 Essential (primary) hypertension; K21.9 Gastro-esophageal reflux disease without esophagitis; F32.9 Major depressive disorder, single episode, unspecified; J30.2 Other seasonal allergic rhinitis; Z95.5 Presence of coronary angioplasty implant and graft; Z79.82 Long term (current) use of aspirin; Z79.899 Other long term (current) drug therapy; Z88.8 Allergy status to other drugs, medicaments and biological substances
CPT/HCPCS: 93971

== ENCOUNTER 2017-10-01 09:23 | Emergency (ER) | payer MEDICARE, MEDICAID | END 2017-10-01 10:51 | disposition home or self-care (01) | LOC: M ED 09:23 | DX: L02.416 Cutaneous abscess of left lower limb (principal); E11.9 Type 2 diabetes mellitus without complications; I10 Essential (primary) hypertension; G89.29 Other chronic pain; M54.9 Dorsalgia, unspecified; E78.5 Hyperlipidemia, unspecified; J44.9 Chronic obstructive pulmonary disease, unspecified; K52.9 Noninfective gastroenteritis and colitis, unspecified; J30.2 Other seasonal allergic rhinitis; Z87.891 Personal history of nicotine dependence; Z79.82 Long term (current) use of aspirin; Z79.84 Long term (current) use of oral hypoglycemic drugs; Z79.899 Other long term (current) drug therapy; Z88.8 Allergy status to other drugs, medicaments and biological substances | CPT/HCPCS: 76882 ==

== ENCOUNTER → 2017-12-25 | Outpatient (CLI) | payer MEDICARE ==
[2017-12-25 13:53] LABS: ANION GAP 8 MEQ/L (8-16); BLOOD UREA NITROGEN 16 MG/DL (7-18); CARBON DIOXIDE LEVEL 29 MEQ/L (21-32); CHLORIDE LEVEL 104 MEQ/L (98-107); CREATININE FOR GFR 0.82 MG/DL (0.70-1.30); GLOMERULAR FILTRATION RATE > 60.0 (>49); GLUCOSE, FASTING 243 MG/DL (70-100); POTASSIUM SERUM 3.8 MEQ/L (3.5-5.1); SODIUM LEVEL 141 MEQ/L (136-145)
== END ==
LOC: M LAB 12:10
DX: S37.0 Injury of kidney (principal)
CPT/HCPCS: 80048

== ENCOUNTER → 2017-12-29 | Outpatient (CLI) | payer MEDICARE | LOC: M RAD 14:13 | DX: S37.0 Injury of kidney (principal) | CPT/HCPCS: Q9967 ==

== ENCOUNTER → 2018-02-05 | Outpatient (CLI) | payer MEDICARE | LOC: M RAD 09:51 | DX: Z12.2 Encounter for screening for malignant neoplasm of respiratory organs (principal); F17.210 Nicotine dependence, cigarettes, uncomplicated | CPT/HCPCS: 71250 ==

== ENCOUNTER → 2018-02-26 | Outpatient (CLI) | payer MEDICARE | LOC: M RAD 09:51 | DX: M19.011 Primary osteoarthritis, right shoulder (principal); M19.012 Primary osteoarthritis, left shoulder; M25.711 Osteophyte, right shoulder; M75.31 Calcific tendinitis of right shoulder; M25.712 Osteophyte, left shoulder; M75.32 Calcific tendinitis of left shoulder; M25.519 Pain in unspecified shoulder | CPT/HCPCS: 72040 ==

== ENCOUNTER 2018-04-16 23:05 | Emergency (ER) | payer MEDICARE ==
[~2018-04-16] VITALS: Ht 170.2 cm; Wt 90.9 kg
[~2018-04-16 23:05] MED LIST changes: +AMLO5TAB6; +AMLO5TAB6 PO; +AMOX875T PO; +ASPI1TAB15 PO; +ASPI81TA52; +AZIT500T2 PO; +BACT800T5 PO; +CETI10TA; +CLOP75TA2; +DOXA1TAB49; +DOXA1TAB49 PO; +DRIS50003 PO; +FARX1TAB3; +GEMF600T5; +GEMF600T5 PO; +GLIP10TA6; +GLIP10TA6 PO; +HYDR25TA PO; +INCR1INH; +INCR1INH INH; -ISOVUE-370 76% 100ML VIAL (Q9967) As Ordered; +KEFL500C17 PO; +LACT1TAB4 PO; +LISI40TA; +LISI40TA PO; +METF10004; +METF10004 PO; +METO50TA7; +METO50TA7 PO; +MIRA33504 PO; +MONT10TA2; +NIFE30TA7 PO; +PARO40TA2; +PARO40TA2 PO; +PERC5TAB12 PO; +PLAV1TAB2 PO; +POLY33503; +POTA10TA14 PO; +PRED10TA2 PO; +RANI150T; +RANI150T PO; +SING10TA32 PO; +TRAD5TAB; +TRAD5TAB PO; +VITA100067 PO; +VITA400C7 PO; +VITA50005; +[UNRECOGNIZED DRUG - OTHER]
[2018-04-16] MEDS ORDERED: OMEP40CA2 PO (23:18)
[2018-04-17] MEDS ORDERED: KETOROLAC 60 MG/2 ML VIAL (J1885) IM ONE
[2018-04-17] MEDS ORDERED: BACL10TA2 PO (00:07)
[2018-04-17 00:11] VITALS: BP 147/72
== END 2018-04-17 00:16 | disposition home or self-care (01) ==
LOC: M ED 23:05
DX: M50.30 Other cervical disc degeneration, unspecified cervical region (principal); M75.31 Calcific tendinitis of right shoulder; M75.32 Calcific tendinitis of left shoulder; E11.9 Type 2 diabetes mellitus without complications; I10 Essential (primary) hypertension; J44.9 Chronic obstructive pulmonary disease, unspecified; E78.5 Hyperlipidemia, unspecified; K21.9 Gastro-esophageal reflux disease without esophagitis; F33.9 Major depressive disorder, recurrent, unspecified; F41.9 Anxiety disorder, unspecified; Z87.19 Personal history of other diseases of the digestive system; Z79.899 Other long term (current) drug therapy; Z79.82 Long term (current) use of aspirin; Z88.8 Allergy status to other drugs, medicaments and biological substances; F17.210 Nicotine dependence, cigarettes, uncomplicated
CPT/HCPCS: 96372; 99283; J1885

== ENCOUNTER 2018-05-25 11:17 | Emergency (ER) | payer MEDICARE, MEDICAID ==
[~2018-05-25] VITALS: Ht 170.2 cm; Wt 94.1 kg
[~2018-05-25 11:17] MED LIST changes: +BACL10TA2 PO; +OMEP40CA2 PO
--- NOTE | 2018-05-25 12:09 | REP ---
RIGHT WRIST SERIES: FOUR VIEWS. HISTORY: Pain. COMPARISON STUDY: Right hand radiographs from 09/11/2008. FINDINGS: There is a small accessory ossicle adjacent to the articular surface of the distal radius along its ulnar aspect at the radiolunate articulation. This is visible in retrospect on the 2008 prior study and is unchanged. It is not felt to reflect an acute finding. There is, however, mild radiocarpal spurring visible on the lateral radiograph. Mild distal radial ulnar joint spurring is seen. No fracture is noted. IMPRESSION: No acute bony abnormality. Mild radiocarpal and distal radial ulnar joint spurring. Small old accessory ossicle adjacent to the distal radius. Electronically Signed by Lance Crawley MD 05/25/2018 08:34 P
[2018-05-25] MEDS ORDERED: BACT800T5 PO (13:04)
[2018-05-25] MEDS ORDERED: BACTRIM 160MG/800MG DS TAB PO ONE (13:15)
[2018-05-25 13:30] VITALS: BP 165/78
== END 2018-05-25 13:29 | disposition home or self-care (01) ==
LOC: M ED 11:17
DX: E11.628 Type 2 diabetes mellitus with other skin complications (principal); L03.113 Cellulitis of right upper limb; I10 Essential (primary) hypertension; J44.9 Chronic obstructive pulmonary disease, unspecified; K21.9 Gastro-esophageal reflux disease without esophagitis; Z95.5 Presence of coronary angioplasty implant and graft; Z79.899 Other long term (current) drug therapy; Z79.84 Long term (current) use of oral hypoglycemic drugs; Z79.82 Long term (current) use of aspirin; Z88.8 Allergy status to other drugs, medicaments and biological substances

== ENCOUNTER → 2018-08-12 | Outpatient (REF) | payer MEDICARE, MEDICAID ==
[~2018-08-12] MED LIST changes: +BISA5TAB77; -[UNRECOGNIZED DRUG - OTHER]
[2018-08-12 13:48] LABS: ALBUMIN 3.6 GM/DL (3.2-5.2); ALT/SGPT 46 U/L (12-78); BILIRUBIN,TOTAL 0.4 MG/DL (0.2-1.0); BLOOD UREA NITROGEN 16 MG/DL (7-18); CALCIUM LEVEL 8.7 MG/DL (8.8-10.2); CARBON DIOXIDE LEVEL 29 MEQ/L (21-32); CHLORIDE LEVEL 104 MEQ/L (98-107); CHOLESTEROL LEVEL 120 MG/DL (<200); CHOLESTEROL RISK RATIO 3.076 (<5); CREATININE FOR GFR 0.77 MG/DL (0.70-1.30); GLOMERULAR FILTRATION RATE > 60.0 (>49); GLUCOSE, FASTING 159 MG/DL (70-100); HDL CHOLESTEROL 39 MG/DL (>40); LDL CHOLESTEROL 30 MG/DL (<100); NON-HDL-C 81 MG/DL; SODIUM LEVEL 139 MEQ/L (136-145); TOTAL PROTEIN 7.4 GM/DL (6.4-8.2); TRIGLYCERIDES LEVEL 253 MG/DL (<150)
[2018-08-12 13:50] LABS: HEMOGLOBIN A1c 7.6 %
[2018-08-12 14:29] LABS: CREATININE, URINE 36.6 MG/DL; MAU/CREAT RATIO 1166.6 MCG/MG (0.0-30.0)
== END ==
LOC: M LAB REF 12:40
PROVIDERS: ATTEND Family Medicine Addiction Medicine
DX: E11.9 Type 2 diabetes mellitus without complications (principal)

== ENCOUNTER 2018-09-11 12:40 | Emergency (ER) | payer MEDICARE, MEDICAID ==
[~2018-09-11] VITALS: Ht 170.2 cm; Wt 92.3 kg
[2018-09-11 12:40] VITALS: BP 152/87
[2018-09-11] MEDS ORDERED: CARV6.25 PO (14:26)
[2018-09-11] MEDS ORDERED: ATOR40TA75 PO (14:26)
[2018-09-11] MEDS ORDERED: SB A10TA4 PO (14:26)
[2018-09-11] MEDS ORDERED: OMEP40CA2 PO (14:30)
== END 2018-09-11 15:35 | disposition left against medical advice (07) ==
LOC: M ED 12:40
DX: R07.9 Chest pain, unspecified (principal); Z53.21 Procedure and treatment not carried out due to patient leaving prior to being seen by health care provider

== ENCOUNTER → 2019-01-10 | Outpatient (CLI) | payer MEDICARE, MEDICAID ==
[~2019-01-10] MED LIST changes: +ATOR40TA75 PO; +CARV6.25 PO; +SB A10TA4 PO
--- NOTE | 2019-01-11 04:29 | REP ---
Clinical: Proteinuria. Technique: Real time moreau scale and color evaluation using curved array transducer. Findings: Bladder is normal in appearance. No wall thickening or bladder mass lesion appreciated. Bilateral ureteral jets are identified. Prevoid bladder measures 10.5 x 10.5 x 4.8 cm (346 ml). Postvoid bladder measures 2.7 x 3.5 x 2.3 cm (14 ml). Postvoid residual equals 4%. Impression: Normal bladder ultrasound. Electronically Signed by Eddy Vee MD 01/11/2019 04:21 A
--- NOTE | 2019-01-11 04:33 | REP ---
Clinical: Proteinuria. Technique: Real time moreau scale and color evaluation using curved array transducer. Findings: The bilateral kidneys are hyperechoic. Right kidney measures 12.9 x 6.5 x 6.1 cm and demonstrates mild hydronephrosis along with three cysts measuring 1.2 cm, 1.2 cm, and 1.3 cm maximal diameter each. Left kidney measures 12.9 x 6.0 x 5.6 cm without hydronephrosis and includes three cysts measuring 1.4 cm, 1.8 cm, and 2.2 cm maximal diameter each. Impression: Increased renal parenchymal echotexture suggests medical renal disease. Few bilateral renal cysts up to 2.2 cm diameter. Mild right-sided hydronephrosis cannot be excluded. Electronically Signed by Eddy Vee MD 01/11/2019 04:24 A
== END ==
LOC: M RAD 09:55
PROVIDERS: ATTEND Internal Medicine Nephrology
DX: N28.1 Cyst of kidney, acquired (principal); E11.22 Type 2 diabetes mellitus with diabetic chronic kidney disease; I12.9 Hypertensive chronic kidney disease with stage 1 through stage 4 chronic kidney disease, or unspecified chronic kidney disease; R80.9 Proteinuria, unspecified; N18.9 Chronic kidney disease, unspecified

== ENCOUNTER → 2019-01-12 | Outpatient (REF) | payer MEDICARE, MEDICAID ==
[2019-01-12 14:17] LABS: HEMOGLOBIN A1c 7.4 %
[2019-01-12 14:35] LABS: BLOOD UREA NITROGEN 14 MG/DL (7-18); CALCIUM LEVEL 9.2 MG/DL (8.8-10.2); CARBON DIOXIDE LEVEL 25 MEQ/L (21-32); CHLORIDE LEVEL 102 MEQ/L (98-107); GLOMERULAR FILTRATION RATE > 60.0 (>49); GLUCOSE, FASTING 148 MG/DL (70-100); POTASSIUM SERUM 4.3 MEQ/L (3.5-5.1); SODIUM LEVEL 138 MEQ/L (136-145)
[2019-01-12 14:36] LABS: ALBUMIN 3.8 GM/DL (3.2-5.2); ALT/SGPT 35 U/L (12-78); BILIRUBIN,TOTAL 0.3 MG/DL (0.2-1.0); CHOLESTEROL LEVEL 127 MG/DL (<200); CHOLESTEROL RISK RATIO 3.097 (<5); HDL CHOLESTEROL 41 MG/DL (>40); LDL CHOLESTEROL 44 MG/DL (<100); NON-HDL-C 86 MG/DL; TOTAL PROTEIN 7.4 GM/DL (6.4-8.2); TRIGLYCERIDES LEVEL 208 MG/DL (<150)
== END ==
LOC: M LAB REF 12:34
PROVIDERS: ATTEND Nurse Practitioner Family
DX: E11.9 Type 2 diabetes mellitus without complications (principal); E78.5 Hyperlipidemia, unspecified

== ENCOUNTER 2019-02-09 00:36 | Emergency (ER) | payer MEDICARE, MEDICAID ==
[~2019-02-09] VITALS: Ht 170.2 cm; Wt 90.9 kg
[2019-02-09 00:36] VITALS: BP 140/75
[~2019-02-09 00:36] MED LIST changes: -AZIT500T2 PO; +AZIT500T5 PO; -OMEP40CA2 PO; +OMEP40CA97 PO
[2019-02-09] MEDS ORDERED: PANT40TA3 PO (00:46)
[2019-02-09] MEDS ORDERED: INVO100T PO (00:46)
[2019-02-09] MEDS ORDERED: LOSA25TA14 PO (00:46)
[2019-02-09] MEDS ORDERED: DOXYCYCLINE HYCLATE 100 MG TAB PO ONE (01:15)
[2019-02-09] MEDS ORDERED: DOXY100C37 PO (01:24)
== END 2019-02-09 01:38 | disposition home or self-care (01) ==
LOC: M ED 00:36
DX: S20.362A Insect bite (nonvenomous) of left front wall of thorax, initial encounter (principal); A69.20 Lyme disease, unspecified; W57.XXXA Bitten or stung by nonvenomous insect and other nonvenomous arthropods, initial encounter; Y92.9 Unspecified place or not applicable; Y93.9 Activity, unspecified; Y99.9 Unspecified external cause status; E11.9 Type 2 diabetes mellitus without complications; I10 Essential (primary) hypertension; F17.200 Nicotine dependence, unspecified, uncomplicated; Z79.82 Long term (current) use of aspirin; Z79.84 Long term (current) use of oral hypoglycemic drugs; Z79.899 Other long term (current) drug therapy; Z88.8 Allergy status to other drugs, medicaments and biological substances

== ENCOUNTER → 2019-05-20 | Outpatient (REF) | payer MEDICARE, MEDICAID ==
[~2019-05-20] MED LIST changes: +DOXY100C37 PO; +INVO100T PO; +LOSA25TA14 PO; +NIFE1TAB52 PO; -NIFE30TA7 PO; +PANT40TA3 PO
[2019-05-20 11:55] LABS: BASO # 0.1 10^3/uL (0.0-0.2); BASO % 0.6 % (0.0-1.0); EOS # 0.2 10^3/uL (0.0-0.5); EOS % 1.3 % (0.0-3.0); HEMATOCRIT 48.1 % (42.0-52.0); HEMOGLOBIN 16.1 g/dl (13.5-17.5); LYMPH % 28.1 % (24.0-44.0); MEAN CORPUSCULAR HEMOGLOBIN 30.7 pg (27.0-33.0); MEAN CORPUSCULAR HGB CONC 33.5 g/dl (32.0-36.5); MEAN CORPUSCULAR VOLUME 91.8 fl (80.0-96.0); MONO # 1.1 10^3/uL (0.0-0.8); NEUTROPHILS # 8.6 10^3/uL (1.5-8.5); PLATELET COUNT, AUTOMATED 235 10^3/uL (150-450); RED BLOOD COUNT 5.24 10^6/uL (4.30-6.10); WHITE BLOOD COUNT 14.1 10^3/uL (4.0-10.0)
[2019-05-20 12:24] LABS: ALBUMIN 4.1 GM/DL (3.2-5.2); ALT/SGPT 32 U/L (12-78); BILIRUBIN,TOTAL 0.5 MG/DL (0.2-1.0); BLOOD UREA NITROGEN 14 MG/DL (7-18); CALCIUM LEVEL 9.3 MG/DL (8.8-10.2); CARBON DIOXIDE LEVEL 28 MEQ/L (21-32); CHLORIDE LEVEL 104 MEQ/L (98-107); CHOLESTEROL LEVEL 116 MG/DL (<200); CREATININE FOR GFR 0.74 MG/DL (0.70-1.30); FREE T4 1.09 NG/DL (0.76-1.46); GLOMERULAR FILTRATION RATE > 60.0 (>49); GLUCOSE, FASTING 83 MG/DL (70-100); HDL CHOLESTEROL 40 MG/DL (>40); LDL CHOLESTEROL 51 MG/DL (<100); NON-HDL-C 76 MG/DL; POTASSIUM SERUM 3.8 MEQ/L (3.5-5.1); SODIUM LEVEL 139 MEQ/L (136-145); TOTAL 25(OH) VITAMIN D 32.2 NG/ML (30.0-100.0); TOTAL PROTEIN 7.4 GM/DL (6.4-8.2); TRIGLYCERIDES LEVEL 127 MG/DL (<150)
[2019-05-20 12:34] LABS: HEMOGLOBIN A1c 7.7 %
[2019-05-20 12:37] LABS: CREATININE, URINE 47.7 MG/DL; MAU/CREAT RATIO 698.1 MCG/MG (0.0-30.0)
== END ==
LOC: M LAB REF 11:02
PROVIDERS: ATTEND Physician Assistant
DX: E11.29 Type 2 diabetes mellitus with other diabetic kidney complication (principal); E87.6 Hypokalemia; K21.9 Gastro-esophageal reflux disease without esophagitis; I25.110 Atherosclerotic heart disease of native coronary artery with unstable angina pectoris; E55.9 Vitamin D deficiency, unspecified; Z79.899 Other long term (current) drug therapy

== ENCOUNTER 2019-08-01 23:15 | Emergency (ER) | payer MEDICARE, MEDICAID ==
[~2019-08-01 23:15] MED LIST changes: -MONT10TA2; +MONT10TA4
[2019-08-01] MEDS ORDERED: KP F1200 PO (23:22)
[2019-08-01] MEDS ORDERED: GI COCKTAIL 50ML BTL(HYOSCYAMINE/MAALOX/LIDOCAINE VISCOUS)(1:3:1) PO ONE (23:45)
[2019-08-01] MEDS ORDERED: PANTOPRAZOLE 40MG INJ (PROTONIX) (C9113) IV ONE (23:45)
[2019-08-01] MEDS ORDERED: SUCRALFATE 1 GM TAB PO ONE (23:45)
[2019-08-02] MEDS ORDERED: PANTOPRAZOLE 40MG TAB (PROTONIX) PO ONE (00:15)
--- NOTE | 2019-08-02 00:24 | REPVR ---
PROCEDURE INFORMATION: Exam: CT Chest Without Contrast Exam date and time: 08/01/2019 11:36 PM Age: 68 years old Clinical indication: Chest pain; Type not specified; Patient HX: Fall; Additional info: Epigastric pain TECHNIQUE: Imaging protocol: Computed tomography of the chest without contrast. Radiation optimization: All CT scans at this facility use at least one of these dose optimization techniques: automated exposure control; mA and/or kV adjustment per patient size (includes targeted exams where dose is matched to clinical indication); or iterative reconstruction. COMPARISON: CT Chest without contrast 2018-02-05 10:03 FINDINGS: Lungs: Minimal paraseptal pulmonary emphysema. Pleural based 4 mm right middle lobe is unchanged pulmonary nodule. Pleural space: Unremarkable. No pneumothorax. No pleural effusion. Heart: Moderate left anterior descending coronary artery atherosclerosis. Aorta: Unremarkable. No aortic aneurysm. Lymph nodes: Unremarkable. No enlarged lymph nodes. Liver: Hepatic steatosis. Gallbladder and bile ducts: Cholecystectomy. Adrenals: Unchanged 1.5 cm left adrenal benign adenoma. Kidneys and ureters: Numerous simple appearing renal cysts measuring up to 1.9 cm. Nonobstructing nephrolithiasis. Indeterminate 5 mm medial left kidney lesion on series 202, image 109, recommend follow-up . Stomach and bowel: Small duodenal diverticulum. Bones/joints: Unremarkable. No acute fracture. Soft tissues: Unremarkable. IMPRESSION: 1. No acute abnormality. 2. Pleural based 4 mm right middle lobe is unchanged pulmonary nodule. 3. Hepatic steatosis. 4. Nonobstructing nephrolithiasis. 5. Moderate left anterior descending coronary artery atherosclerosis. 6. Indeterminate 5 mm medial left kidney lesion on series 202, image 109, recommend follow-up . COMMENTS: 1. As per Fleischner Society guidelines for follow-up and management of pulmonary nodules: For patients at low risk (minimal or absent history of smoking and of other known risk factors), recommend follow-up chest CT at 12 months; if unchanged, no further follow-up. For patient at high risk (history of smoking or of other known risk factors), recommend initial follow-up chest CT at 6-12 months, then at 18-24 months if no interval change. 2. Consistent with the [employer]'s Incidental Findings Committee white paper (J Am Lori Radiol 2018): Any incidental cystic renal lesion classified in this report as too small to characterize or simple appearing is likely a benign cyst. No follow-up imaging is recommended for these lesions per consensus recommendations based on imaging criteria. Electronically signed by: Dale Nguyen On 08/02/2019 00:24:25 AM
[2019-08-02] MEDS ORDERED: CARA1TAB6 PO (00:36)
[2019-08-02 00:43] VITALS: BP 149/78
--- NOTE | 2019-08-02 09:17 | ECGEPIP ---
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
== END 2019-08-02 00:44 | disposition home or self-care (01) ==
LOC: M ED 23:15
DX: R10.13 Epigastric pain (principal); J21.9 Acute bronchiolitis, unspecified; W19.XXXA Unspecified fall, initial encounter; R00.1 Bradycardia, unspecified; I44.0 Atrioventricular block, first degree; Y92.9 Unspecified place or not applicable; Y93.9 Activity, unspecified; Y99.9 Unspecified external cause status; R91.1 Solitary pulmonary nodule; K76.0 Fatty (change of) liver, not elsewhere classified; N20.0 Calculus of kidney; I25.10 Atherosclerotic heart disease of native coronary artery without angina pectoris; N28.89 Other specified disorders of kidney and ureter; E11.9 Type 2 diabetes mellitus without complications; I10 Essential (primary) hypertension; E78.5 Hyperlipidemia, unspecified; J44.9 Chronic obstructive pulmonary disease, unspecified; Z95.5 Presence of coronary angioplasty implant and graft; Z95.1 Presence of aortocoronary bypass graft; F17.200 Nicotine dependence, unspecified, uncomplicated; Z79.82 Long term (current) use of aspirin; Z79.84 Long term (current) use of oral hypoglycemic drugs; Z79.899 Other long term (current) drug therapy; Z88.8 Allergy status to other drugs, medicaments and biological substances

== ENCOUNTER 2019-08-26 23:00 | Emergency (ER) | payer MEDICARE, MEDICAID ==
[~2019-08-26] VITALS: Ht 170.2 cm; Wt 90.9 kg
[~2019-08-26 23:00] MED LIST changes: +CARA1TAB6 PO; +KP F1200 PO
[2019-08-26] MEDS ORDERED: LIDOCAINE 4% CREAM 5GM (LMX4) TOP ONE (23:45)
[2019-08-26] MEDS ORDERED: LIDOCAINE 5% (LIDODERM) PATCH TD ONE (23:45)
[2019-08-27 00:38] VITALS: BP 146/84
[2019-08-27] MEDS ORDERED: ROBA750T4 PO (00:43)
[2019-08-27] MEDS ORDERED: ACETAMINOPHEN 500 MG TAB PO ONE (01:00)
[2019-08-27] MEDS ORDERED: methocarbamoL 750 MG TAB PO ONE (01:00)
[2019-08-27] MEDS ORDERED: **NOTE PATIENT COMMENT** MISC XX ONE (11:45)
== END 2019-08-27 00:54 | disposition home or self-care (01) ==
LOC: M ED 23:00
DX: M25.511 Pain in right shoulder (principal); M25.512 Pain in left shoulder; E11.9 Type 2 diabetes mellitus without complications; I10 Essential (primary) hypertension; J44.9 Chronic obstructive pulmonary disease, unspecified; K52.9 Noninfective gastroenteritis and colitis, unspecified; F17.200 Nicotine dependence, unspecified, uncomplicated; Z79.899 Other long term (current) drug therapy; Z79.82 Long term (current) use of aspirin; Z79.02 Long term (current) use of antithrombotics/antiplatelets; Z79.84 Long term (current) use of oral hypoglycemic drugs

== ENCOUNTER → 2019-09-28 | Outpatient (CLI) | payer MEDICARE, MEDICAID ==
[~2019-09-28] MED LIST changes: +ROBA750T4 PO
--- NOTE | 2019-09-28 16:29 | REP ---
Eight views cervical spine: 09/28/2019. Indication: Neck pain. Findings: There is no acute fracture, subluxation or dislocation. No lytic or blastic lesions are present. The neural foramina appear patent throughout. There is no evidence of instability by radiographic evaluation. Impression: No acute osseous injury of the cervical spine. Electronically Signed by Rick Tierney DO 09/28/2019 04:21 P
--- NOTE | 2019-09-29 08:24 | REP ---
REASON: Shoulder pain. There is degenerative change involving the acromioclavicular and glenohumeral joints. There is a tiny calcification seen lateral to the humeral head. There is no acute fracture. IMPRESSION: 1. Degenerative changes. 2. Small soft tissue calcification possibly secondary to either chronic calcific subdeltoid bursitis or chronic calcific supraspinatus tendinitis. Electronically Signed by Tomy Rojas DO 09/29/2019 08:28 A
== END ==
LOC: M RAD 09:51
PROVIDERS: ATTEND Family Medicine Addiction Medicine
DX: M54.2 Cervicalgia (principal); M25.511 Pain in right shoulder; M19.011 Primary osteoarthritis, right shoulder

== ENCOUNTER → 2019-12-09 | Outpatient (REF) | payer OTHER, MEDICAID ==
[~2019-12-09] MED LIST changes: +AMLO1TAB24; +AMLO1TAB24 PO; -AMLO5TAB6; -AMLO5TAB6 PO; +ASPI-546 PO; -ASPI1TAB15 PO; +PANT40TA29 PO; -PANT40TA3 PO; +TIZA4TAB4 PO; +TRUL10IN SUBQ
[2019-12-09 13:48] LABS: HEMOGLOBIN A1c 8.8 %
[2019-12-09 14:02] LABS: ALT/SGPT 54 U/L (12-78); BILIRUBIN,TOTAL 0.6 MG/DL (0.2-1.0); BLOOD UREA NITROGEN 19 MG/DL (7-18); CALCIUM LEVEL 9.5 MG/DL (8.8-10.2); CARBON DIOXIDE LEVEL 27 MEQ/L (21-32); CHLORIDE LEVEL 104 MEQ/L (98-107); CHOLESTEROL LEVEL 110 MG/DL (<200); CHOLESTEROL RISK RATIO 2.894 (<5); CREATININE FOR GFR 0.83 MG/DL (0.70-1.30); GLOMERULAR FILTRATION RATE > 60.0 (>49); GLUCOSE, FASTING 144 MG/DL (70-100); HDL CHOLESTEROL 38 MG/DL (>40); LDL CHOLESTEROL 36 MG/DL (<100); NON-HDL-C 72 MG/DL; SODIUM LEVEL 136 MEQ/L (136-145); TOTAL PROTEIN 7.4 GM/DL (6.4-8.2); TRIGLYCERIDES LEVEL 180 MG/DL (<150)
== END ==
LOC: M LAB REF 12:27
PROVIDERS: ATTEND Family Medicine Addiction Medicine
DX: Z00.01 Encounter for general adult medical examination with abnormal findings (principal); E11.9 Type 2 diabetes mellitus without complications

== ENCOUNTER 2019-12-21 22:49 | Emergency (ER) | payer MEDICARE, MEDICAID, OTHER ==
[~2019-12-21] VITALS: Ht 170.2 cm; Wt 90.9 kg
[~2019-12-21 22:49] MED LIST changes: -TIZA4TAB4 PO; -TRUL10IN SUBQ
[2019-12-21 22:51] VITALS: BP 152/85
[2019-12-21] MEDS ORDERED: TRUL10IN SUBQ (23:02)
[2019-12-21] MEDS ORDERED: TIZA4TAB4 PO (23:02)
== END 2019-12-22 00:23 | disposition left against medical advice (07) ==
LOC: M ED 22:49
DX: Z53.20 Procedure and treatment not carried out because of patient's decision for unspecified reasons (principal); M25.512 Pain in left shoulder; F17.200 Nicotine dependence, unspecified, uncomplicated; I10 Essential (primary) hypertension; E11.9 Type 2 diabetes mellitus without complications; J44.9 Chronic obstructive pulmonary disease, unspecified; E78.5 Hyperlipidemia, unspecified; K21.9 Gastro-esophageal reflux disease without esophagitis; Z79.82 Long term (current) use of aspirin; Z79.84 Long term (current) use of oral hypoglycemic drugs; Z79.899 Other long term (current) drug therapy; Z88.8 Allergy status to other drugs, medicaments and biological substances; Z95.1 Presence of aortocoronary bypass graft; Z95.818 Presence of other cardiac implants and grafts

== ENCOUNTER → 2020-02-07 | Outpatient (CLI) | payer MEDICARE, MEDICAID ==
[~2020-02-07] MED LIST changes: +TIZA4TAB4 PO; +TRUL10IN SUBQ
--- NOTE | 2020-02-07 13:14 | REP ---
INDICATION: CKD STAGE 2 COMPARISON: 01/10/2019 TECHNIQUE: Real time moreau scale ultrasound examination using curved array transducer. FINDINGS: The kidneys are relatively normal in reniform shape and demonstrate increased parenchymal echotexture, increased central sinus fat, and renovascular calcifications consistent with chronic medical renal disease. Right kidney measures 13.9 x 7.9 x 7.9 cm and demonstrates chronic mild pelvic fullness unchanged from prior examination, and without umu hydronephrosis. Few scattered cysts are identified measuring between 10 mm and 13 mm, and appear essentially unchanged. Left kidney measures 14.3 x 6.5 x 6.4 cm without hydronephrosis. Few scattered cysts are identified measuring between 1.1 cm and 2.4 cm, and appear essentially unchanged although the largest upper pole cyst may be slightly increased in size and has somewhat complex appearance by ultrasound. Bladder is grossly unremarkable. IMPRESSION: 1. Evidence for chronic medical renal disease as described above as well as mild chronic right renal pelvic fullness unchanged compared to prior examination. 2. Bilateral simple and complex cysts primarily stable compared to prior examination although left upper pole cyst is minimally increased and mildly complex in appearance. Patient may benefit from pre and post-contrast CT of the abdomen to confirm benignity. <Electronically signed by Eddy Vee > 02/07/20 [id number]
== END ==
LOC: M RAD 12:01
PROVIDERS: ATTEND Internal Medicine Nephrology
DX: N18.2 Chronic kidney disease, stage 2 (mild) (principal); I12.9 Hypertensive chronic kidney disease with stage 1 through stage 4 chronic kidney disease, or unspecified chronic kidney disease; N28.1 Cyst of kidney, acquired

== ENCOUNTER → 2020-03-14 | Outpatient (REF) | payer OTHER, MEDICAID ==
[2020-03-14 17:34] LABS: ALT/SGPT 54 U/L (12-78); BILIRUBIN,TOTAL 0.6 MG/DL (0.2-1.0); BLOOD UREA NITROGEN 18 MG/DL (7-18); CALCIUM LEVEL 9.5 MG/DL (8.8-10.2); CARBON DIOXIDE LEVEL 27 MEQ/L (21-32); CHLORIDE LEVEL 102 MEQ/L (98-107); CHOLESTEROL LEVEL 117 MG/DL (<200); CHOLESTEROL RISK RATIO 2.785 (<5); CREATININE FOR GFR 0.92 MG/DL (0.70-1.30); GLOMERULAR FILTRATION RATE > 60.0 (>49); GLUCOSE, FASTING 235 MG/DL (70-100); HDL CHOLESTEROL 42 MG/DL (>40); LDL CHOLESTEROL 40 MG/DL (<100); NON-HDL-C 75 MG/DL; POTASSIUM SERUM 4.5 MEQ/L (3.5-5.1); SODIUM LEVEL 137 MEQ/L (136-145); TOTAL PROTEIN 7.3 GM/DL (6.4-8.2); TRIGLYCERIDES LEVEL 173 MG/DL (<150)
[2020-03-14 19:20] LABS: HEMOGLOBIN A1c 7.3 %
== END ==
LOC: M LAB REF 16:25
PROVIDERS: ATTEND Family Medicine Addiction Medicine
DX: E11.9 Type 2 diabetes mellitus without complications (principal)

== ENCOUNTER → 2020-03-26 | Outpatient (CLI) | payer MEDICARE, MEDICAID ==
[~2020-03-26] MED LIST changes: -MONT10TA4; +MONT5TAB2
[2020-03-26 11:16] LABS: ALT/SGPT 50 U/L (12-78); BILIRUBIN,TOTAL 0.5 MG/DL (0.2-1.0); BLOOD UREA NITROGEN 13 MG/DL (7-18); CALCIUM LEVEL 9.3 MG/DL (8.8-10.2); CARBON DIOXIDE LEVEL 28 MEQ/L (21-32); CHLORIDE LEVEL 104 MEQ/L (98-107); CREATININE FOR GFR 0.85 MG/DL (0.70-1.30); GLOMERULAR FILTRATION RATE > 60.0 (>49); GLUCOSE, FASTING 180 MG/DL (70-100); SODIUM LEVEL 138 MEQ/L (136-145)
[2020-03-26 11:17] LABS: ALBUMIN 3.7 GM/DL (3.2-5.2); CHOLESTEROL LEVEL 102 MG/DL (<200); CHOLESTEROL RISK RATIO 2.372 (<5); HDL CHOLESTEROL 43 MG/DL (>40); LDL CHOLESTEROL 23 MG/DL (<100); NON-HDL-C 59 MG/DL; TRIGLYCERIDES LEVEL 181 MG/DL (<150)
[2020-03-26 11:29] LABS: CREATININE, URINE 19.5 MG/DL
[2020-03-26 11:42] LABS: HEMOGLOBIN A1c 7.4 %
--- NOTE | 2020-03-26 12:08 | REP ---
INDICATION: NECK PAIN, LABS 1ST THEN XR. COMPARISON: September 28, 2019.. TECHNIQUE: Three views. FINDINGS: There is moderate osteoarthritic hypertrophy, some narrowing and sclerosis, in the acromioclavicular joint. The AC and glenohumeral joints are normally aligned. There is mild inferior articular margin spurring on the glenoid as well. There are periarticular soft tissue calcifications in several locations adjacent to the proximal humeral head and in the superior aspect of the glenoid consistent with calcific tendinitis and/or bursitis. No erosive changes seen. The visualized right hemithorax is remarkable for some linear opacity in the perihilar region consistent with discoid atelectasis and/or scarring. This appears to be fibrosis based on comparison with CT study from August 01, 2019.. IMPRESSION: Periarticular soft tissue calcifications adjacent to the glenohumeral joint consistent with calcific tendinitis and/or bursitis. AC and glenohumeral joint osteoarthritic spurring. Findings unchanged from September 28, 2019. <Electronically signed by Solomon Crawley > 03/26/20 [id number]
--- NOTE | 2020-03-26 12:11 | REP ---
INDICATION: TINGLING OF SKIN, LABS 1ST THEN XR. COMPARISON: Comparison study May 12, 2011.. TECHNIQUE: Three views. FINDINGS: There is straightening of the normal lumbar lordosis. Lumbar vertebral body heights are preserved. Vascular calcification is noted in a normal caliber aorta. There are multiple surgical clips in the abdomen. There is no evidence of spondylolisthesis. There is degenerative disc narrowing at L4-5 with anterior spurring. Similar findings are seen at L3-4 and to a lesser extent L2-3 and L1-2. There is fairly prominent discogenic spurring anteriorly at L5-S1. On the frontal radiograph there is discogenic spurring and projecting bilaterally at the L1-2 level. Sacrum and SI joints are intact. Psoas margins are roughly symmetric. IMPRESSION: Diffuse degenerative disc disease. Some mild osteoarthritic changes. The L1-2 disc spurring is somewhat more prominent than on the 08/04 study. The L4-5 disc is a little more narrowed. Otherwise unchanged. <Electronically signed by Solomon Crawley > 03/26/20 [id number]
== END ==
LOC: M LAB 09:48
PROVIDERS: ATTEND Family Medicine Addiction Medicine
DX: K59.09 Other constipation (principal); E11.69 Type 2 diabetes mellitus with other specified complication; R20.2 Paresthesia of skin; M54.2 Cervicalgia

== ENCOUNTER → 2020-05-18 | Outpatient (CLI) | payer MEDICARE, MEDICAID | LOC: M PLARAD 13:43 | PROVIDERS: ATTEND Pain Medicine Interventional Pain Medicine | DX: M48.061 Spinal stenosis, lumbar region without neurogenic claudication (principal); Z53.9 Procedure and treatment not carried out, unspecified reason ==

== ENCOUNTER → 2020-05-30 | Outpatient (CLI) | payer MEDICARE, MEDICAID ==
[~2020-05-30] MED LIST changes: -LISI40TA; -LISI40TA PO; +LISI40TA4; +LISI40TA4 PO; +MONT10TA10; -MONT5TAB2
--- NOTE | 2020-05-30 18:50 | REPVR ---
PROCEDURE INFORMATION: Exam: MR Lumbar Spine Without Contrast. Exam date and time: 05/30/2020 6:33 PM Age: 69 years old Clinical indication: Low back pain; Patient HX: Lbp; Additional info: Lumbar spinal stenosis, cervical radiculopathy TECHNIQUE: Imaging protocol: Multiplanar magnetic resonance images of the lumbar spine without intravenous contrast. COMPARISON: CR Spine, Lumbosacral, partial 03/26/2020 10:09 AM FINDINGS: Vertebrae: 3 mm of retrolisthesis of L4 on L5. No acute fracture seen. Spinal cord: The conus medullaris ends normally. There is disc desiccation at L1-L2, L4-L5 and L5-S1. Disc height loss and spondylosis is mild at L4-L5 and L5-S1, minimal at L1-L2. Small lower thoracic and upper lumbar endplate Schmorl's nodes. Mild endplate inflammation at L4-L5 and L5-S1, to a trace extent anteriorly elsewhere, likely degenerative. L1-L2: Mild disc bulge and facet arthropathy with trace left facet joint effusion. No stenoses. L2-L3: Knzg-pg-gguoibxw facet arthropathy. No stenoses. L3-L4: Broad-based left far lateral disc protrusion with high-intensity zone. Itiy-kh-nassmpns right and mild left facet arthropathy. Mild left neural foraminal stenosis without nerve root impingement. No significant right neural foraminal narrowing. L4-L5: Retrolisthesis. Mild diffuse disc osteophyte complex. 3 mm left lateral canal disc extrusion extends 5 mm below the disc space impinging upon the left L5 nerve root. Facet arthropathy is [id number]. The central spinal canal remains patent. Mild bilateral neural foraminal stenoses. L5-S1: Moderate diffuse disc osteophyte complex and sunl-me-iikzxvup facet arthropathy. Small central disc protrusion measures approximately 3 mm. The central spinal canal remains patent. Disc material approximates but does not frankly contact or compress the S1 nerve roots. Wnbi-xl-wzedlegj left neural foraminal stenosis, the exiting left L5 nerve root contacts far lateral disc osteophyte. Soft tissues: Unremarkable. Kidneys and ureters: There are bilateral kidney cysts. IMPRESSION: 1. A small left lateral canal disc extrusion at L4-L5 may be cause of left L5 distribution radiculopathy. 2. Left neural foraminal stenosis at L5-S1 may be additional cause of left L5 distribution radiculopathy. Electronically signed by: Marissa Street On 05/30/2020 18:49:58 PM
--- NOTE | 2020-05-30 19:03 | REPVR ---
PROCEDURE INFORMATION: Exam: MR Cervical Spine Without Contrast Exam date and time: 05/30/2020 6:33 PM Age: 69 years old Clinical indication: Neck pain; Additional info: Spinal stenosis TECHNIQUE: Imaging protocol: Multiplanar magnetic resonance images of the cervical spine without contrast. COMPARISON: CR Spine, Cervical 09/28/2019 10:12 AM FINDINGS: Vertebrae: Trace 1-2 mm of grade 1 degenerative anterolisthesis of C6 on C7. No acute fracture seen. Right C6-C7 articular facet and periarticular soft tissue edema, probably inflammatory/degenerative, present on the basis of advanced facet arthropathy. Spinal cord: Normal signal. No cord compression. Disc desiccation throughout. Mild posterior disc height loss with endplate osteophytic ridging at C6-C7. C2-C3: 2-3 mm central disc protrusion does not contribute to central spinal canal stenosis. Csgr-ip-bzknmoog facet arthropathy. No significant foraminal stenoses. C3-C4: The central spinal canal is patent. Left uncovertebral and facet arthropathy causing mild left neural foraminal stenosis. No significant right neural foraminal narrowing. C4-C5: Subtle 1-2 mm central disc protrusion does not contribute to central spinal canal stenosis. Moderate left uncovertebral and facet arthropathy causing moderate left neural foraminal stenosis. C5-C6: Mild disc bulge and slight ligamentum flavum buckling. Facet arthropathy is moderate on the left. No stenoses. C6-C7: Mild disc osteophyte complex. There is a 2-3 mm left paracentral disc protrusion. Slight posterior ligamentum flavum buckling. The central spinal canal remains patent. Uncovertebral and facet arthropathy causing pmak-gj-xnrxfxcr bilateral neural foraminal stenoses. C7-T1: Mild disc bulge and xftl-vl-iwxswmxh facet arthropathy. No stenoses. Soft tissues: See "Vertebrae" finding. Thyroid: There is a 1.6 cm left thyroid nodule. Thyroid ultrasound is recommended for further evaluation. Vertebral arteries: Expected flow voids in the vertebral arteries. IMPRESSION: 1. Severe right facet arthropathy at C6-C7 with articular facet and periarticular soft tissue edema. 2. Trace grade 1 degenerative anterolisthesis of C6 on C7. 3. Moderate left neural foraminal stenosis at C4-C5. 4. Mjte-cz-gkrvzfqp bilateral neural foraminal stenoses at C6-C7. COMMENTS: Consistent with the [employer]'s Incidental Findings Committee white paper (J Am Lori Radiol 2015): In patients aged 35 years and older with an incidental thyroid nodule equal to or greater than 1.[address], MRI or extrathyroidal US, further evaluation with dedicated thyroid US is recommended for patients with normal life expectancy and without comorbidities. For smaller nodules without suspicious features, no further evaluation or follow up is recommended. Electronically signed by: Marissa Street On 05/30/2020 19:03:08 PM
== END ==
LOC: M RAD 16:56
PROVIDERS: ATTEND Pain Medicine Interventional Pain Medicine
DX: M48.02 Spinal stenosis, cervical region (principal); M48.061 Spinal stenosis, lumbar region without neurogenic claudication; M43.12 Spondylolisthesis, cervical region; M54.12 Radiculopathy, cervical region; M25.78 Osteophyte, vertebrae; E04.1 Nontoxic single thyroid nodule

== ENCOUNTER → 2020-06-21 | Outpatient (REF) | payer MEDICARE, MEDICAID ==
[2020-06-21 12:59] LABS: ALBUMIN 3.8 GM/DL (3.2-5.2); ALT/SGPT 47 U/L (12-78); BILIRUBIN,TOTAL 0.5 MG/DL (0.2-1.0); BLOOD UREA NITROGEN 18 MG/DL (7-18); CALCIUM LEVEL 9.4 MG/DL (8.8-10.2); CARBON DIOXIDE LEVEL 27 MEQ/L (21-32); CHLORIDE LEVEL 101 MEQ/L (98-107); CHOLESTEROL LEVEL 122 MG/DL (<200); CHOLESTEROL RISK RATIO 3.128 (<5); CREATININE FOR GFR 0.93 MG/DL (0.70-1.30); GLOMERULAR FILTRATION RATE > 60.0 (>49); GLUCOSE, FASTING 240 MG/DL (70-100); HDL CHOLESTEROL 39 MG/DL (>40); LDL CHOLESTEROL 32 MG/DL (<100); NON-HDL-C 83 MG/DL; POTASSIUM SERUM 4.1 MEQ/L (3.5-5.1); SODIUM LEVEL 136 MEQ/L (136-145); THYROID STIMULATING HORMONE 0.848 uIU/ML (0.358-3.740); TOTAL PROTEIN 7.2 GM/DL (6.4-8.2); TRIGLYCERIDES LEVEL 256 MG/DL (<150)
[2020-06-21 15:29] LABS: HEMOGLOBIN A1c 7.7 %
== END ==
LOC: M LAB REF 11:37
PROVIDERS: ATTEND Family Medicine Addiction Medicine
DX: E11.69 Type 2 diabetes mellitus with other specified complication (principal)

== ENCOUNTER → 2021-03-21 | Outpatient (REF) | payer MEDICARE, MEDICAID ==
[~2021-03-21] MED LIST changes: +DOXY-443 PO; -DOXY100C37 PO; +OMEP40CA4 PO; -OMEP40CA97 PO
== END ==
LOC: M LAB REF 08:38
PROVIDERS: ATTEND Surgery
DX: L72.3 Sebaceous cyst (principal)

== ENCOUNTER → 2021-05-15 | Outpatient (REF) | payer MEDICARE, MEDICAID ==
[~2021-05-15] MED LIST changes: +LOSA25TA13 PO; -LOSA25TA14 PO; -MONT10TA10; +MONT10TA97; -POTA10TA14 PO; +POTA1TAB24 PO; +TIZA10TA PO; -TIZA4TAB4 PO
== END ==
LOC: M LAB REF 17:04
PROVIDERS: ATTEND Nurse Practitioner Family
DX: N18.2 Chronic kidney disease, stage 2 (mild) (principal)

== ENCOUNTER 2021-06-10 23:51 | Emergency (ER) | payer MEDICARE, MEDICAID ==
[~2021-06-10] VITALS: Ht 170.2 cm; Wt 93.3 kg
[~2021-06-10 23:51] MED LIST changes: +JARD1TAB3 PO; +LORA-674; +MIRA3350 PO; +SPIR-10 PO; +TRUL0.5I
[2021-06-11] MEDS ORDERED: CAPS0.022 TOP (01:50)
[2021-06-11 01:56] VITALS: BP 137/74
== END 2021-06-11 01:57 | disposition home or self-care (01) ==
LOC: M ED 23:51
DX: R07.9 Chest pain, unspecified (principal); E11.9 Type 2 diabetes mellitus without complications; I10 Essential (primary) hypertension; K21.9 Gastro-esophageal reflux disease without esophagitis; E78.5 Hyperlipidemia, unspecified; J44.9 Chronic obstructive pulmonary disease, unspecified; I25.2 Old myocardial infarction; Z88.8 Allergy status to other drugs, medicaments and biological substances; Z79.84 Long term (current) use of oral hypoglycemic drugs; Z79.899 Other long term (current) drug therapy

== ENCOUNTER → 2021-06-17 | Outpatient (CLI) | payer MEDICARE, MEDICAID ==
[~2021-06-17] MED LIST changes: +CAPS0.022 TOP
== END ==
LOC: M LABSMTC 09:15
PROVIDERS: ATTEND Anesthesiology
DX: Z01.812 Encounter for preprocedural laboratory examination (principal); Z20.822 Contact with and (suspected) exposure to COVID-19

== ENCOUNTER 2021-11-17 22:38 | Emergency (ER) | payer MEDICARE, MEDICAID ==
[~2021-11-17] VITALS: Ht 170.2 cm; Wt 90.9 kg
[2021-11-17 23:59] LABS: BASO # 0.1 10^3/uL (0.0-0.2); BASO % 0.5 % (0.0-1.0); EOS # 0.2 10^3/uL (0.0-0.5); EOS % 1.7 % (0.0-3.0); HEMATOCRIT 45.5 % (42.0-52.0); HEMOGLOBIN 14.9 g/dl (13.5-17.5); LYMPH % 39.3 % (24.0-44.0); MEAN CORPUSCULAR HEMOGLOBIN 29.4 pg (27.0-33.0); MEAN CORPUSCULAR HGB CONC 32.7 g/dl (32.0-36.5); MEAN CORPUSCULAR VOLUME 89.9 fl (80.0-96.0); MONO # 0.9 10^3/uL (0.0-0.8); MONO % 7.1 % (2.0-8.0); NEUTROPHILS # 6.6 10^3/uL (1.5-8.5); NEUTROPHILS % 51.1 % (36.0-66.0); PLATELET COUNT, AUTOMATED 227 10^3/uL (150-450); RED BLOOD COUNT 5.06 10^6/uL (4.30-6.10); WHITE BLOOD COUNT 12.8 10^3/uL (4.0-10.0)
[2021-11-18 00:23] LABS: ALBUMIN 3.5 GM/DL (3.2-5.2); ALT/SGPT 31 U/L (12-78); BILIRUBIN,DIRECT 0.2 MG/DL (0.0-0.2); BILIRUBIN,TOTAL 0.4 MG/DL (0.2-1.0); BLOOD UREA NITROGEN 24 MG/DL (7-18); CALCIUM LEVEL 9.2 MG/DL (8.8-10.2); CARBON DIOXIDE LEVEL 26 MEQ/L (21-32); CHLORIDE LEVEL 105 MEQ/L (98-107); CREATININE FOR GFR 0.74 MG/DL (0.70-1.30); GLOMERULAR FILTRATION RATE > 60.0 (>42); GLUCOSE, FASTING 153 MG/DL (70-100); LIPASE 237 U/L (73-393); NT-PRO BNP 23 PG/ML (<125); POTASSIUM SERUM 3.5 MEQ/L (3.5-5.1); SODIUM LEVEL 139 MEQ/L (136-145); TOTAL PROTEIN 6.9 GM/DL (6.4-8.2)
[2021-11-18 00:24] LABS: CK-MB VALUE MASS 1.2 NG/ML (<3.6); MB/CK RELATIVE INDEX 2.31 (< OR =4)
[2021-11-18 02:00] VITALS: BP 153/78
== END 2021-11-18 02:22 | disposition home or self-care (01) ==
LOC: M ED 22:38
DX: R07.89 Other chest pain (principal); M19.019 Primary osteoarthritis, unspecified shoulder; E11.9 Type 2 diabetes mellitus without complications; I25.10 Atherosclerotic heart disease of native coronary artery without angina pectoris; I25.2 Old myocardial infarction; I10 Essential (primary) hypertension; E78.5 Hyperlipidemia, unspecified; J44.9 Chronic obstructive pulmonary disease, unspecified; K21.9 Gastro-esophageal reflux disease without esophagitis; Z95.1 Presence of aortocoronary bypass graft; F17.200 Nicotine dependence, unspecified, uncomplicated; Z88.8 Allergy status to other drugs, medicaments and biological substances; Z79.82 Long term (current) use of aspirin; Z79.84 Long term (current) use of oral hypoglycemic drugs; Z79.899 Other long term (current) drug therapy

== ENCOUNTER 2022-03-02 09:37 | Observation (INO) | payer MEDICARE, MEDICAID ==
[~2022-03-02] VITALS: Ht 180.3 cm; Wt 89.9 kg
[~2022-03-02 09:37] MED LIST changes: +CLOP75TA99 PO; -LORA-674; +LORA-674 PO; +NICOTINE 14 MG/24 HR TRANSDERMAL TD SCH; -PLAV1TAB2 PO; +predniSONE 20 MG TAB PO SCH
[2022-03-02 10:20] LABS: BASO # 0.1 10^3/uL (0.0-0.2); BASO % 0.4 % (0.0-1.0); EOS # 0.2 10^3/uL (0.0-0.5); EOS % 1.1 % (0.0-3.0); HEMATOCRIT 49.8 % (42.0-52.0); HEMOGLOBIN 16.2 g/dl (13.5-17.5); LYMPH # 2.8 10^3/uL (1.5-5.0); MEAN CORPUSCULAR HEMOGLOBIN 29.7 pg (27.0-33.0); MEAN CORPUSCULAR HGB CONC 32.5 g/dl (32.0-36.5); MEAN CORPUSCULAR VOLUME 91.4 fl (80.0-96.0); MONO % 6.7 % (2.0-8.0); NEUTROPHILS % 71.2 % (36.0-66.0); PLATELET COUNT, AUTOMATED 244 10^3/uL (150-450); RED BLOOD COUNT 5.45 10^6/uL (4.30-6.10); WHITE BLOOD COUNT 14.1 10^3/uL (4.0-10.0)
[2022-03-02] MEDS ORDERED: ISOVUE-370 76% 100ML VIAL As Ordered ONE (10:28)
[2022-03-02 10:38] LABS: INR 0.95; PROTHROMBIN TIME 12.9 SECONDS (12.5-14.5)
[2022-03-02 10:39] LABS: PARTIAL THROMBOPLASTIN TIME 30.5 SECONDS (24.8-34.2)
[2022-03-02 10:53] LABS: BLOOD UREA NITROGEN 21 MG/DL (7-18); CALCIUM LEVEL 9.8 MG/DL (8.8-10.2); CARBON DIOXIDE LEVEL 27 MEQ/L (21-32); CHLORIDE LEVEL 102 MEQ/L (98-107); CREATININE FOR GFR 0.85 MG/DL (0.70-1.30); GLOMERULAR FILTRATION RATE > 60.0 (>42); GLUCOSE, FASTING 247 MG/DL (70-100); SODIUM LEVEL 136 MEQ/L (136-145)
[2022-03-02 10:57] LABS: CK-MB VALUE MASS 1.1 NG/ML (<3.6); MB/CK RELATIVE INDEX 2.04 (< OR =4)
[2022-03-02 10:59] LABS: RSV AMPLIFICATION NEGATIVE (NEGATIVE)
[2022-03-02] MEDS ORDERED: DEXTROSE 50% 50 ML SYRINGE IV PRN (12:00)
[2022-03-02] MEDS ORDERED: GLUCOSE 4GM CHEW TABLET PO PRN (12:00)
[2022-03-02] MEDS ORDERED: GLUCAGON INJ 1MG VIAL SC PRN (12:00)
[2022-03-02] MEDS ORDERED: VITA100093 PO (12:00)
[2022-03-02] MEDS ORDERED: IPRATROPIUM 0.5MG/ALBUTEROL 2.5MG INH SOL UD 3ML (DUONEB) NEB PRN (12:00)
[2022-03-02] MEDS ORDERED: TRUL0.5I SC (12:00)
[2022-03-02] MEDS ORDERED: HOME MED LIST COMPLETE! XX SCH ×2 (12:05)
[2022-03-02 12:50] LABS: CHOLESTEROL LEVEL 111 MG/DL (<200); CHOLESTEROL RISK RATIO 2.522 (<5); HDL CHOLESTEROL 44 MG/DL (>40); LDL CHOLESTEROL 13 MG/DL (<100); NON-HDL-C 67 MG/DL; TRIGLYCERIDES LEVEL 269 MG/DL (<150)
[2022-03-02] MEDS ORDERED: MIRALAX *UNIT DOSE* 17GM PACKET PO PRN (12:50)
[2022-03-02 12:55] LABS: HEMOGLOBIN A1c 7.1 %
[2022-03-02 13:51] VITALS: BP 134/66
[2022-03-02] MEDS: INSULIN LISPRO (NovoLOG) PER UNIT SC SCH ×2 (13:53→17:12)
[2022-03-02] MEDS: valACYclovir HCL 500 MG TAB PO SCH ×2 (14:00→20:43)
[2022-03-02 16:15] VITALS: BP 133/73
[2022-03-02] MEDS ORDERED: ACETAMINOPHEN TAB 650MG DOSE (2X325MG) PO PRN (17:20)
[2022-03-02 20:45] VITALS: BP 153/78
[2022-03-02] MEDS ORDERED: INSULIN LISPRO (NovoLOG) PER UNIT SC SCH (21:00)
[2022-03-02] MEDS ORDERED: PARoxetine 20MG TABLET PO SCH (21:00)
[2022-03-02] MEDS ORDERED: DOXAZOSIN MESYLATE 4 MG TAB PO SCH (21:00)
[2022-03-02] MEDS ORDERED: LORATADINE 10 MG TAB PO SCH (21:00)
[2022-03-02] MEDS ORDERED: CARVedilol 6.25 MG TAB PO SCH (21:00)
[2022-03-02] MEDS ORDERED: ATORVASTATIN 20 MG TAB PO SCH (21:00)
[2022-03-02] MEDS ORDERED: LEVEMIR (INSULIN DETEMIR) 1 UNITS/0.01ML SC SCH (21:00)
[2022-03-03] MEDS ORDERED: CLOPIDOGREL 75 MG TAB PO SCH (09:00)
[2022-03-03] MEDS ORDERED: ASPIRIN 325 MG TAB PO SCH (09:00)
[2022-03-03] MEDS ORDERED: VITAMIN D 1,000 INTERNATIONAL UNITS TABLET PO SCH (09:00)
[2022-03-03] MEDS ORDERED: PANTOPRAZOLE 40MG TAB (PROTONIX) PO SCH (09:00)
[2022-03-03] MEDS ORDERED: FLUBLOK(EGG FREE)(QUAD)INFLUENZA VACC 0.5ML SYRINGE 18YRS & OLDER IM.IMMUN ONE (09:00)
[2022-03-03] MEDS ORDERED: ENOXAPARIN 40MG/0.4ML SYRINGE (J1650 PER 10MG) SC SCH (09:00)
[2022-03-03] MEDS ORDERED: LOSARTAN 25 MG TAB PO SCH (09:00)
[2022-03-03] MEDS ORDERED: MONTELUKAST 10 MG TAB PO SCH (09:00)
== END 2022-03-02 21:22 | disposition left against medical advice (07) ==
LOC: M ED 09:37 → M ED INP 09:38 → UNDOADMIN 11:41 → M ED INP 11:41 → ENRESERV 12:22 → M PCU 12:55
PROVIDERS: ADMIT Internal Medicine; ATTEND Internal Medicine
DX: G51.0 Bell's palsy (principal); Z53.20 Procedure and treatment not carried out because of patient's decision for unspecified reasons; I10 Essential (primary) hypertension; E11.9 Type 2 diabetes mellitus without complications; J44.9 Chronic obstructive pulmonary disease, unspecified; I25.10 Atherosclerotic heart disease of native coronary artery without angina pectoris; Z98.61 Coronary angioplasty status; F32.A Depression, unspecified; F41.9 Anxiety disorder, unspecified; F17.210 Nicotine dependence, cigarettes, uncomplicated; Z79.01 Long term (current) use of anticoagulants; Z79.02 Long term (current) use of antithrombotics/antiplatelets; Z79.82 Long term (current) use of aspirin; Z79.84 Long term (current) use of oral hypoglycemic drugs; Z79.899 Other long term (current) drug therapy; Z88.8 Allergy status to other drugs, medicaments and biological substances
CPT/HCPCS: 70450; 70496; 70498; 71045; 80047; 80048; 80061; 82550; 82553; 83036; 84484; 85025; 85610; 85730; 86850; 86900; 86901; 87631; 93005; 93041; 94760; 99285; G0378; J1815; J7512; Q9967

== ENCOUNTER → 2022-07-16 | Outpatient (REF) | payer MEDICARE, MEDICAID ==
[~2022-07-16] MED LIST changes: +MONT-5 PO; -NICOTINE 14 MG/24 HR TRANSDERMAL TD SCH; -SING10TA32 PO; +TRUL0.5I SC; +VITA100093 PO; -predniSONE 20 MG TAB PO SCH
[2022-07-16 13:24] LABS: ALBUMIN 3.8 G/DL (3.2-5.2); ALKALINE PHOSPHATASE 67 U/L (46-116); ALT/SGPT 36 U/L (7.0-40); AST/SGOT 26 U/L (<34); BILIRUBIN,TOTAL 0.7 MG/DL (0.3-1.2); BLOOD UREA NITROGEN 15 MG/DL (9-23); CALCIUM LEVEL 9.5 MG/DL (8.3-10.6); CARBON DIOXIDE LEVEL 29 MMOL/L (20-31); CHLORIDE LEVEL 102 MMOL/L (98-107); CHOLESTEROL LEVEL 105 MG/DL (<200); CHOLESTEROL RISK RATIO 2.65 (<5); CREATININE FOR GFR 0.74 MG/DL (0.70-1.30); GLOMERULAR FILTRATION RATE > 60.0 (>42); GLUCOSE, FASTING 123 MG/DL (74-106); HDL CHOLESTEROL 39.5 MG/DL (>40); LDL CHOLESTEROL 33.1 MG/DL (<100); NON-HDL-C 65.5 MG/DL; POTASSIUM SERUM 4.4 MMOL/L (3.5-5.1); SODIUM LEVEL 137 MMOL/L (136-145); TOTAL PROTEIN 6.9 G/DL (5.7-8.2); TRIGLYCERIDES LEVEL 162 MG/DL (<150)
[2022-07-16 13:26] LABS: THYROID STIMULATING HORMONE 1.109 uIU/ML (0.55-4.78)
[2022-07-16 13:40] LABS: HEMOGLOBIN A1c 7.1 % (4.0-6.0)
== END ==
LOC: M LAB REF 12:04
PROVIDERS: ATTEND Family Medicine Addiction Medicine
DX: E11.9 Type 2 diabetes mellitus without complications (principal)

== ENCOUNTER → 2022-09-26 | Outpatient (REF) | payer OTHER, MEDICAID ==
[2022-09-26 15:52] LABS: HEMOGLOBIN A1c 7.4 % (4.0-6.0)
[2022-09-26 16:11] LABS: THYROID STIMULATING HORMONE 1.187 uIU/ML (0.55-4.78)
[2022-09-26 16:16] LABS: ALBUMIN 3.9 G/DL (3.2-5.2); ALKALINE PHOSPHATASE 73 U/L (46-116); ALT/SGPT 46 U/L (7.0-40); AST/SGOT 28 U/L (<34); BILIRUBIN,TOTAL 0.6 MG/DL (0.3-1.2); BLOOD UREA NITROGEN 14 MG/DL (9-23); CARBON DIOXIDE LEVEL 29 MMOL/L (20-31); CHLORIDE LEVEL 101 MMOL/L (98-107); CHOLESTEROL LEVEL 116 MG/DL (<200); CHOLESTEROL RISK RATIO 2.49 (<5); CREATININE FOR GFR 0.76 MG/DL (0.70-1.30); GLOMERULAR FILTRATION RATE > 60.0 (>42); GLUCOSE, FASTING 140 MG/DL (74-106); HDL CHOLESTEROL 46.5 MG/DL (>40); LDL CHOLESTEROL 39.5 MG/DL (<100); NON-HDL-C 69.5 MG/DL; POTASSIUM SERUM 4.8 MMOL/L (3.5-5.1); SODIUM LEVEL 136 MMOL/L (136-145); TRIGLYCERIDES LEVEL 150 MG/DL (<150)
== END ==
LOC: M LAB REF 12:22
PROVIDERS: ATTEND Family Medicine Addiction Medicine
DX: E11.9 Type 2 diabetes mellitus without complications (principal)

== ENCOUNTER → 2022-12-03 | Outpatient (REF) | payer OTHER, MEDICAID ==
[2022-12-03 17:58] LABS: HEMOGLOBIN A1c 7.7 % (4.0-6.0)
[2022-12-03 18:07] LABS: ALBUMIN 3.9 G/DL (3.2-5.2); ALKALINE PHOSPHATASE 68 U/L (46-116); ALT/SGPT 40 U/L (7.0-40); AST/SGOT 19 U/L (<34); BILIRUBIN,TOTAL 0.6 MG/DL (0.3-1.2); BLOOD UREA NITROGEN 18 MG/DL (9-23); CALCIUM LEVEL 9.5 MG/DL (8.3-10.6); CARBON DIOXIDE LEVEL 26 MMOL/L (20-31); CHLORIDE LEVEL 103 MMOL/L (98-107); CHOLESTEROL LEVEL 124 MG/DL (<200); CHOLESTEROL RISK RATIO 2.87 (<5); CREATININE FOR GFR 0.65 MG/DL (0.70-1.30); GLOMERULAR FILTRATION RATE > 60.0 (>42); GLUCOSE, FASTING 99 MG/DL (74-106); HDL CHOLESTEROL 43.2 MG/DL (>40); LDL CHOLESTEROL 48.4 MG/DL (<100); NON-HDL-C 80.8 MG/DL; POTASSIUM SERUM 4.7 MMOL/L (3.5-5.1); SODIUM LEVEL 137 MMOL/L (136-145); THYROID STIMULATING HORMONE 0.777 uIU/ML (0.55-4.78); TOTAL PROTEIN 7.3 G/DL (5.7-8.2); TRIGLYCERIDES LEVEL 162 MG/DL (<150)
== END ==
LOC: M LAB REF 16:41
PROVIDERS: ATTEND Family Medicine Addiction Medicine
DX: E11.9 Type 2 diabetes mellitus without complications (principal)

== ENCOUNTER → 2023-03-24 | Outpatient (REF) | payer OTHER, MEDICAID ==
[~2023-03-24] MED LIST changes: +LORA-1041 PO; -LORA-674 PO
[2023-03-24 18:58] LABS: ALBUMIN 3.9 G/DL (3.2-5.2); ALKALINE PHOSPHATASE 62 U/L (46-116); ALT/SGPT 34 U/L (7.0-40); AST/SGOT 20 U/L (<34); BILIRUBIN,TOTAL 0.7 MG/DL (0.3-1.2); BLOOD UREA NITROGEN 18 MG/DL (9-23); CALCIUM LEVEL 9.4 MG/DL (8.3-10.6); CARBON DIOXIDE LEVEL 28 MMOL/L (20-31); CHLORIDE LEVEL 103 MMOL/L (98-107); CHOLESTEROL LEVEL 112 MG/DL (<200); CHOLESTEROL RISK RATIO 2.63 (<5); CREATININE FOR GFR 0.69 MG/DL (0.70-1.30); GLOMERULAR FILTRATION RATE > 60.0 (>42); GLUCOSE, FASTING 145 MG/DL (74-106); HDL CHOLESTEROL 42.5 MG/DL (>40); LDL CHOLESTEROL 36.5 MG/DL (<100); NON-HDL-C 69.5 MG/DL; SODIUM LEVEL 140 MMOL/L (136-145); THYROID STIMULATING HORMONE 1.207 uIU/ML (0.55-4.78); TOTAL PROTEIN 7.2 G/DL (5.7-8.2); TRIGLYCERIDES LEVEL 165 MG/DL (<150)
[2023-03-24 19:13] LABS: HEMOGLOBIN A1c 7.7 % (4.0-6.0)
== END ==
LOC: M LAB REF 17:12
PROVIDERS: ATTEND Family Medicine Addiction Medicine
DX: E11.69 Type 2 diabetes mellitus with other specified complication (principal)

== ENCOUNTER → 2023-09-03 | Outpatient (REF) | payer OTHER, MEDICAID ==
[~2023-09-03] MED LIST changes: +DOXY-323 PO; -DOXY-443 PO; -HYDR25TA PO; +HYDR25TA88 PO
[2023-09-03 15:03] LABS: HEMOGLOBIN A1c 8.6 % (4.0-6.0)
[2023-09-03 15:16] LABS: ALBUMIN 3.8 G/DL (3.2-5.2); ALKALINE PHOSPHATASE 61 U/L (46-116); ALT/SGPT 23 U/L (7.0-40); AST/SGOT 13 U/L (<34); BILIRUBIN,TOTAL 0.6 MG/DL (0.3-1.2); BLOOD UREA NITROGEN 17 MG/DL (9-23); CALCIUM LEVEL 9.9 MG/DL (8.3-10.6); CARBON DIOXIDE LEVEL 29 MMOL/L (20-31); CHLORIDE LEVEL 104 MMOL/L (98-107); CHOLESTEROL LEVEL 107 MG/DL (<200); CHOLESTEROL RISK RATIO 2.85 (<5); CREATININE FOR GFR 0.69 MG/DL (0.70-1.30); GLOMERULAR FILTRATION RATE > 60.0 (>42); GLUCOSE, FASTING 101 MG/DL (74-106); HDL CHOLESTEROL 37.5 MG/DL (>40); LDL CHOLESTEROL 36.1 MG/DL (<100); NON-HDL-C 69.5 MG/DL; POTASSIUM SERUM 4.6 MMOL/L (3.5-5.1); SODIUM LEVEL 139 MMOL/L (136-145); THYROID STIMULATING HORMONE 1.331 uIU/ML (0.55-4.78); TRIGLYCERIDES LEVEL 167 MG/DL (<150)
[2023-09-03 15:53] LABS: CREATININE, URINE 44.8 MG/DL; MAU/CREAT RATIO 136.1 MCG/MG (0.0-30.0)
== END ==
LOC: M LAB REF 11:24
PROVIDERS: ATTEND Family Medicine Addiction Medicine
DX: E11.69 Type 2 diabetes mellitus with other specified complication (principal)

== ENCOUNTER → 2023-12-03 | Outpatient (REF) | payer OTHER, MEDICAID ==
[2023-12-03 16:59] LABS: ALKALINE PHOSPHATASE 61 U/L (46-116); ALT/SGPT 26 U/L (7.0-40); AST/SGOT 15 U/L (<34); BILIRUBIN,TOTAL 0.7 MG/DL (0.3-1.2); BLOOD UREA NITROGEN 19 MG/DL (9-23); CALCIUM LEVEL 9.6 MG/DL (8.3-10.6); CARBON DIOXIDE LEVEL 29 MMOL/L (20-31); CHLORIDE LEVEL 105 MMOL/L (98-107); CHOLESTEROL LEVEL 113 MG/DL (<200); CHOLESTEROL RISK RATIO 2.96 (<5); CREATININE FOR GFR 0.65 MG/DL (0.70-1.30); GLOMERULAR FILTRATION RATE > 60.0 (>42); GLUCOSE, FASTING 102 MG/DL (74-106); HDL CHOLESTEROL 38.1 MG/DL (>40); LDL CHOLESTEROL 42.1 MG/DL (<100); NON-HDL-C 74.9 MG/DL; POTASSIUM SERUM 4.5 MMOL/L (3.5-5.1); SODIUM LEVEL 138 MMOL/L (136-145); TOTAL PROTEIN 7.2 G/DL (5.7-8.2); TRIGLYCERIDES LEVEL 164 MG/DL (<150)
[2023-12-03 17:01] LABS: THYROID STIMULATING HORMONE 1.053 uIU/ML (0.55-4.78)
[2023-12-03 17:04] LABS: HEMOGLOBIN A1c 7.9 % (4.0-6.0)
== END ==
LOC: M LAB REF 16:31
PROVIDERS: ATTEND Family Medicine Addiction Medicine
DX: E11.69 Type 2 diabetes mellitus with other specified complication (principal)

== ENCOUNTER → 2024-01-26 | Outpatient (REF) | payer OTHER, MEDICAID ==
[~2024-01-26] MED LIST changes: -DOXY-323 PO; +DOXY-441 PO; +GLIP10TA15; +GLIP10TA15 PO; -GLIP10TA6; -GLIP10TA6 PO
[2024-01-26 13:59] LABS: CREATININE, URINE 42.9 MG/DL; MAU/CREAT RATIO 186.4 MCG/MG (0.0-30.0)
[2024-01-26 14:47] LABS: HEMOGLOBIN A1c 8.6 % (4.0-6.0)
[2024-01-26 15:06] LABS: THYROID STIMULATING HORMONE 1.457 uIU/ML (0.55-4.78)
[2024-01-26 15:10] LABS: ALBUMIN 3.9 G/DL (3.2-5.2); ALKALINE PHOSPHATASE 76 U/L (46-116); ALT/SGPT 25 U/L (7.0-40); AST/SGOT 13 U/L (<34); BILIRUBIN,TOTAL 0.7 MG/DL (0.3-1.2); BLOOD UREA NITROGEN 15 MG/DL (9-23); CALCIUM LEVEL 10.2 MG/DL (8.3-10.6); CARBON DIOXIDE LEVEL 29 MMOL/L (20-31); CHLORIDE LEVEL 100 MMOL/L (98-107); CHOLESTEROL LEVEL 125 MG/DL (<200); CHOLESTEROL RISK RATIO 3.46 (<5); CREATININE FOR GFR 0.68 MG/DL (0.70-1.30); GLOMERULAR FILTRATION RATE > 60.0 (>42); GLUCOSE, FASTING 174 MG/DL (74-106); HDL CHOLESTEROL 36.1 MG/DL (>40); LDL CHOLESTEROL 53.1 MG/DL (<100); NON-HDL-C 88.9 MG/DL; POTASSIUM SERUM 5.1 MMOL/L (3.5-5.1); SODIUM LEVEL 136 MMOL/L (136-145); TOTAL PROTEIN 7.7 G/DL (5.7-8.2); TRIGLYCERIDES LEVEL 179 MG/DL (<150)
== END ==
LOC: M LAB REF 12:17
PROVIDERS: ATTEND Family Medicine Addiction Medicine
DX: E11.69 Type 2 diabetes mellitus with other specified complication (principal)

== ENCOUNTER 2024-01-30 23:03 | Emergency (ER) | payer OTHER, MEDICAID ==
[~2024-01-30] VITALS: Ht 170.2 cm; Wt 88.8 kg
[2024-01-30 23:06] VITALS: BP 157/76; TEMP 96.3; O2SAT 95
== END 2024-01-31 02:18 | disposition left against medical advice (07) ==
LOC: M ED 23:03
DX: Z53.21 Procedure and treatment not carried out due to patient leaving prior to being seen by health care provider (principal)

== ENCOUNTER → 2024-02-03 | Outpatient (CLI) | payer OTHER, MEDICAID | LOC: M WUC 08:29 | PROVIDERS: ATTEND Physician Assistant | DX: M54.2 Cervicalgia (principal); M47.812 Spondylosis without myelopathy or radiculopathy, cervical region ==

== ENCOUNTER 2024-03-02 01:46 | Emergency (ER) | payer OTHER, MEDICAID ==
[~2024-03-02] VITALS: Ht 170.2 cm; Wt 92.2 kg
[2024-03-02 01:51] VITALS: BP 169/81; TEMP 97.4; O2SAT 98
== END 2024-03-02 03:45 | disposition left against medical advice (07) ==
LOC: M ED 01:46
DX: Z53.21 Procedure and treatment not carried out due to patient leaving prior to being seen by health care provider (principal)

== ENCOUNTER → 2024-03-09 | Outpatient (CLI) | payer OTHER, MEDICAID | LOC: M RAD 09:00 | PROVIDERS: ATTEND Physician Assistant | DX: M25.511 Pain in right shoulder (principal); S29.012D Strain of muscle and tendon of back wall of thorax, subsequent encounter ==

== ENCOUNTER → 2024-03-28 | Outpatient (CLI) | payer OTHER, MEDICAID | LOC: M SLEEP HO 01-18 11:12 | PROVIDERS: ATTEND Family Medicine Addiction Medicine | DX: G47.33 Obstructive sleep apnea (adult) (pediatric) (principal) ==

== ENCOUNTER → 2024-04-12 | Outpatient (CLI) | payer OTHER, MEDICAID | LOC: M PLAIMG 07:25 | PROVIDERS: ATTEND Physician Assistant | DX: M54.2 Cervicalgia (principal); Z53.9 Procedure and treatment not carried out, unspecified reason ==

== ENCOUNTER → 2024-04-26 | Outpatient (REF) | payer OTHER, MEDICAID ==
[2024-04-26 13:08] LABS: CREATININE, URINE 55.4 MG/DL
[2024-04-26 14:45] LABS: ALBUMIN 4.2 G/DL (3.2-5.2); ALKALINE PHOSPHATASE 62 U/L (40-129); ALT/SGPT 35 U/L (7.0-40); AST/SGOT 21 U/L (<34); BILIRUBIN,TOTAL 0.8 MG/DL (0.3-1.2); BLOOD UREA NITROGEN 18 MG/DL (9-23); CALCIUM LEVEL 10.1 MG/DL (8.3-10.6); CARBON DIOXIDE LEVEL 32 MMOL/L (20-31); CHLORIDE LEVEL 103 MMOL/L (98-107); CHOLESTEROL LEVEL 144 MG/DL (<200); CHOLESTEROL RISK RATIO 3.74 (<5); CREATININE FOR GFR 0.67 MG/DL (0.70-1.30); GLOMERULAR FILTRATION RATE > 60.0 (>42); GLUCOSE, FASTING 160 MG/DL (74-106); HDL CHOLESTEROL 38.5 MG/DL (>40); LDL CHOLESTEROL 42.7 MG/DL (<100); NON-HDL-C 105.5 MG/DL; POTASSIUM SERUM 4.3 MMOL/L (3.5-5.1); SODIUM LEVEL 140 MMOL/L (136-145); TOTAL PROTEIN 7.5 G/DL (5.7-8.2); TRIGLYCERIDES LEVEL 314 MG/DL (<150)
[2024-04-26 14:46] LABS: HEMATOCRIT 50.5 % (42.0-52.0); HEMOGLOBIN 16.3 g/dl (13.5-17.5); MEAN CORPUSCULAR HEMOGLOBIN 29.3 pg (27.0-33.0); MEAN CORPUSCULAR HGB CONC 32.3 g/dl (32.0-36.5); MEAN CORPUSCULAR VOLUME 90.8 fl (80.0-96.0); PLATELET COUNT, AUTOMATED 243 10^3/uL (150-450); RED BLOOD COUNT 5.56 10^6/uL (4.30-6.10); WHITE BLOOD COUNT 15.6 10^3/uL (4.0-10.0)
[2024-04-26 15:18] LABS: HEMOGLOBIN A1c 9.5 % (4.0-6.0)
== END ==
LOC: M LAB REF 11:57
PROVIDERS: ATTEND Physician Assistant
DX: E11.21 Type 2 diabetes mellitus with diabetic nephropathy (principal)

== ENCOUNTER → 2024-06-01 | Outpatient (CLI) | payer OTHER, MEDICAID | LOC: M RAD 15:25 | PROVIDERS: ATTEND Physician Assistant | DX: K59.00 Constipation, unspecified (principal) ==

== ENCOUNTER → 2024-06-22 | Outpatient (REF) | payer OTHER, MEDICAID ==
[2024-06-22 15:08] LABS: BASO # 0.1 10^3/uL (0.0-0.2); BASO % 0.4 % (0.0-1.0); EOS # 0.2 10^3/uL (0.0-0.5); EOS % 1.6 % (0.0-3.0); HEMATOCRIT 49.1 % (42.0-52.0); HEMOGLOBIN 15.9 g/dl (13.5-17.5); LYMPH % 29.5 % (24.0-44.0); MEAN CORPUSCULAR HEMOGLOBIN 29.2 pg (27.0-33.0); MEAN CORPUSCULAR HGB CONC 32.4 g/dl (32.0-36.5); MEAN CORPUSCULAR VOLUME 90.3 fl (80.0-96.0); MONO # 0.9 10^3/uL (0.0-0.8); MONO % 6.8 % (2.0-8.0); NEUTROPHILS # 8.2 10^3/uL (1.5-8.5); NEUTROPHILS % 61.1 % (36.0-66.0); PLATELET COUNT, AUTOMATED 248 10^3/uL (150-450); RED BLOOD COUNT 5.44 10^6/uL (4.30-6.10); WHITE BLOOD COUNT 13.4 10^3/uL (4.0-10.0)
[2024-06-22 15:09] LABS: LIPASE 35 U/L (12-53)
[2024-06-22 15:11] LABS: ALBUMIN 3.9 G/DL (3.2-5.2); ALKALINE PHOSPHATASE 58 U/L (40-129); ALT/SGPT 43 U/L (7.0-40); AST/SGOT 26 U/L (<34); BILIRUBIN,TOTAL 0.7 MG/DL (0.3-1.2); BLOOD UREA NITROGEN 18 MG/DL (9-23); CALCIUM LEVEL 9.8 MG/DL (8.3-10.6); CARBON DIOXIDE LEVEL 29 MMOL/L (20-31); CHLORIDE LEVEL 101 MMOL/L (98-107); CREATININE FOR GFR 0.63 MG/DL (0.70-1.30); GLOMERULAR FILTRATION RATE > 60.0 (>42); GLUCOSE, FASTING 103 MG/DL (74-106); SODIUM LEVEL 137 MMOL/L (136-145); TOTAL PROTEIN 7.3 G/DL (5.7-8.2)
== END ==
LOC: M LAB REF 13:20
PROVIDERS: ATTEND Physician Assistant
DX: R10.9 Unspecified abdominal pain (principal)

== ENCOUNTER → 2024-07-04 | Outpatient (CLI) | payer OTHER, MEDICAID ==
[~2024-07-04] MED LIST changes: +GASTROGRAFIN SOLUTION 30ML ONE; +ISOVUE-370 76% 100ML VIAL ONE
== END ==
LOC: M PLAIMG 08:23
PROVIDERS: ATTEND Physician Assistant
DX: R10.9 Unspecified abdominal pain (principal)
CPT/HCPCS: 74177; Q9963; Q9967

== ENCOUNTER → 2024-07-19 | Outpatient (REF) | payer OTHER, MEDICAID ==
[~2024-07-19] MED LIST changes: -GASTROGRAFIN SOLUTION 30ML ONE; -ISOVUE-370 76% 100ML VIAL ONE
[2024-07-19 13:34] LABS: BLOOD UREA NITROGEN 18 MG/DL (9-23); CALCIUM LEVEL 9.4 MG/DL (8.3-10.6); CARBON DIOXIDE LEVEL 28 MMOL/L (20-31); CHLORIDE LEVEL 104 MMOL/L (98-107); CREATININE FOR GFR 0.65 MG/DL (0.70-1.30); GLOMERULAR FILTRATION RATE > 60.0 (>42); GLUCOSE, FASTING 106 MG/DL (74-106); POTASSIUM SERUM 4.4 MMOL/L (3.5-5.1); SODIUM LEVEL 139 MMOL/L (136-145)
== END ==
LOC: M LAB REF 12:37
PROVIDERS: ATTEND Physician Assistant
DX: R93.5 Abnormal findings on diagnostic imaging of other abdominal regions, including retroperitoneum (principal)

== ENCOUNTER → 2024-07-26 | Outpatient (CLI) | payer OTHER, MEDICAID ==
[~2024-07-26] MED LIST changes: +GASTROGRAFIN SOLUTION 30ML As Ordered ONE; +ISOVUE-370 76% 100ML VIAL As Ordered ONE
== END ==
LOC: M RAD 13:52
PROVIDERS: ATTEND Physician Assistant
DX: R93.5 Abnormal findings on diagnostic imaging of other abdominal regions, including retroperitoneum (principal)
CPT/HCPCS: 74177; Q9963; Q9967

== ENCOUNTER → 2024-07-28 | Outpatient (CLI) | payer OTHER, MEDICAID ==
[~2024-07-28] MED LIST changes: -GASTROGRAFIN SOLUTION 30ML As Ordered ONE; -ISOVUE-370 76% 100ML VIAL As Ordered ONE
== END ==
LOC: M RAD 15:47
PROVIDERS: ATTEND Physician Assistant
DX: K59.09 Other constipation (principal)

== ENCOUNTER → 2024-08-23 | Outpatient (REF) | payer OTHER, MEDICAID ==
[2024-08-23 13:34] LABS: CREATININE, URINE 42.7 MG/DL; MAU/CREAT RATIO 304.4 MCG/MG (0.0-30.0)
[2024-08-23 14:33] LABS: BASO # 0.1 10^3/uL (0.0-0.2); BASO % 0.6 % (0.0-1.0); EOS # 0.2 10^3/uL (0.0-0.5); EOS % 1.3 % (0.0-3.0); HEMATOCRIT 49.6 % (42.0-52.0); HEMOGLOBIN 16.4 g/dl (13.5-17.5); LYMPH # 4.1 10^3/uL (1.5-5.0); LYMPH % 30.5 % (24.0-44.0); MEAN CORPUSCULAR HEMOGLOBIN 29.7 pg (27.0-33.0); MEAN CORPUSCULAR HGB CONC 33.1 g/dl (32.0-36.5); MEAN CORPUSCULAR VOLUME 89.9 fl (80.0-96.0); MONO # 1.1 10^3/uL (0.0-0.8); MONO % 7.8 % (2.0-8.0); NEUTROPHILS % 59.2 % (36.0-66.0); PLATELET COUNT, AUTOMATED 245 10^3/uL (150-450); PSA SCREENING 0.79 NG/ML (< 4.00); RED BLOOD COUNT 5.52 10^6/uL (4.30-6.10); WHITE BLOOD COUNT 13.4 10^3/uL (4.0-10.0)
[2024-08-23 14:37] LABS: THYROID STIMULATING HORMONE 0.975 uIU/ML (0.55-4.78)
[2024-08-23 14:38] LABS: ALBUMIN 4.1 G/DL (3.2-5.2); ALKALINE PHOSPHATASE 61 U/L (40-129); ALT/SGPT 33 U/L (7.0-40); AST/SGOT 19 U/L (<34); BILIRUBIN,TOTAL 0.6 MG/DL (0.3-1.2); BLOOD UREA NITROGEN 20 MG/DL (9-23); CALCIUM LEVEL 9.8 MG/DL (8.3-10.6); CARBON DIOXIDE LEVEL 27 MMOL/L (20-31); CHLORIDE LEVEL 101 MMOL/L (98-107); CHOLESTEROL LEVEL 133 MG/DL (<200); CHOLESTEROL RISK RATIO 3.29 (<5); CREATININE FOR GFR 0.68 MG/DL (0.70-1.30); GLOMERULAR FILTRATION RATE > 90.0 (>42); GLUCOSE, FASTING 183 MG/DL (74-106); HDL CHOLESTEROL 40.4 MG/DL (>40); LDL CHOLESTEROL 50.2 MG/DL (<100); MAGNESIUM LEVEL 1.8 MG/DL (1.8-2.4); NON-HDL-C 92.6 MG/DL; POTASSIUM SERUM 4.5 MMOL/L (3.5-5.1); SODIUM LEVEL 138 MMOL/L (136-145); TOTAL PROTEIN 7.5 G/DL (5.7-8.2); TRIGLYCERIDES LEVEL 212 MG/DL (<150)
[2024-08-23 14:54] LABS: APPEARANCE, URINE CLEAR (CLEAR); BACTERIA, URINE AUTO NEGATIVE (NEGATIVE); BILIRUBIN, URINE AUTO NEGATIVE (NEGATIVE); BLOOD, URINE BLOOD NEGATIVE (NEGATIVE); COLOR, URINE YELLOW (YELLOW); GLUCOSE, URINE (UA) AUTO 3+ mg/dL (NEGATIVE); KETONE, URINE AUTO NEGATIVE (NEGATIVE); LEUKOCYTE ESTERASE, URINE AUTO NEGATIVE (NEGATIVE); NITRITE, URINE AUTO NEGATIVE (NEGATIVE); PROTEIN, URINE AUTO 1+ mg/dL (NEGATIVE); RBC, URINE AUTO 1 /HPF (0-3); SPECIFIC GRAVITY URINE AUTO 1.027 (1.002-1.035); SQUAMOUS EPITHELIAL CELL UR AU 0 /HPF (0-6); UROBILINOGEN, URINE AUTO 0.2 mg/dL (0.0-2.0); WBC, URINE AUTO 0 /HPF (0-3)
[2024-08-23 15:12] LABS: HEMOGLOBIN A1c 8.3 % (4.0-6.0)
== END ==
LOC: M LAB REF 12:21
PROVIDERS: ATTEND Physician Assistant
DX: I10 Essential (primary) hypertension (principal); Z12.5 Encounter for screening for malignant neoplasm of prostate; E11.9 Type 2 diabetes mellitus without complications
CPT/HCPCS: 80053; 80061; 81001; 82043; 83036; 83735; 84443; 85025; G0103

== ENCOUNTER → 2024-08-25 | Outpatient (CLI) | payer OTHER, MEDICAID | LOC: M SLEEP 20:00 | PROVIDERS: ATTEND Physician Assistant | DX: G47.33 Obstructive sleep apnea (adult) (pediatric) (principal); G47.61 Periodic limb movement disorder ==

== ENCOUNTER 2024-11-30 07:21 | Day surgery (SDC) | payer OTHER, MEDICAID ==
[~2024-11-30] VITALS: Ht 170.2 cm; Wt 86.2 kg
[~2024-11-30 07:21] MED LIST changes: +LISI40TA10; +LISI40TA10 PO; -LISI40TA4; -LISI40TA4 PO
[2024-11-30] MEDS ORDERED: LIDOCAINE 2% 100 MG/5 ML SDV (FOR ANES.) As Ordered ONE (08:24)
[2024-11-30] MEDS: IPRATROPIUM 0.5 MG/ALBUTEROL 2.5 MG INH SOL UD 3 ML NEB STA (09:25)
[2024-11-30 09:50] VITALS: BP 111/62; O2SAT 96
== END 2024-11-30 09:55 | disposition home or self-care (01) ==
LOC: M OPP 07:21
PROVIDERS: ATTEND Surgery
DX: D12.6 Benign neoplasm of colon, unspecified (principal); K64.0 First degree hemorrhoids; Z86.0100 Personal history of colon polyps, unspecified; Z95.5 Presence of coronary angioplasty implant and graft; G47.30 Sleep apnea, unspecified; Z88.8 Allergy status to other drugs, medicaments and biological substances; Z79.82 Long term (current) use of aspirin; Z79.84 Long term (current) use of oral hypoglycemic drugs; Z79.02 Long term (current) use of antithrombotics/antiplatelets; Z79.85 Long-term (current) use of injectable non-insulin antidiabetic drugs; Z79.899 Other long term (current) drug therapy; J44.9 Chronic obstructive pulmonary disease, unspecified; F17.210 Nicotine dependence, cigarettes, uncomplicated

== ENCOUNTER 2024-12-12 12:23 | Emergency (ER) | payer OTHER, MEDICAID ==
[~2024-12-12] VITALS: Ht 170.2 cm; Wt 88.3 kg
[2024-12-12 12:25] VITALS: TEMP 96.7
[2024-12-12 14:07] LABS: BASO # 0.0 10^3/uL (0.0-0.2); BASO % 0.3 % (0.0-1.0); EOS # 0.2 10^3/uL (0.0-0.5); EOS % 1.3 % (0.0-3.0); LYMPH # 4.3 10^3/uL (1.5-5.0); LYMPH % 29.7 % (24.0-44.0); MONO # 0.9 10^3/uL (0.0-0.8); MONO % 6.5 % (2.0-8.0); NEUTROPHILS # 8.9 10^3/uL (1.5-8.5); NEUTROPHILS % 61.7 % (36.0-66.0); PLATELET COUNT, AUTOMATED 252 10^3/uL (150-450)
[2024-12-12 14:36] LABS: ALT/SGPT 27 U/L (7.0-40); AST/SGOT 26 U/L (<34); CALCIUM LEVEL 9.7 MG/DL (8.3-10.6); CARBON DIOXIDE LEVEL 29 MMOL/L (20-31); CHLORIDE LEVEL 101 MMOL/L (98-107); CREATININE FOR GFR 0.65 MG/DL (0.70-1.30); GLOMERULAR FILTRATION RATE > 90.0 (>42); POTASSIUM SERUM 4.3 MMOL/L (3.5-5.1); SODIUM LEVEL 140 MMOL/L (136-145)
[2024-12-12 16:20] VITALS: BP 125/72
[2024-12-12 16:53] VITALS: O2SAT 94
== END 2024-12-12 17:06 | disposition left against medical advice (07) ==
LOC: M ED 12:23
DX: R10.9 Unspecified abdominal pain (principal); K56.41 Fecal impaction; F17.200 Nicotine dependence, unspecified, uncomplicated; I10 Essential (primary) hypertension; E78.5 Hyperlipidemia, unspecified; K21.9 Gastro-esophageal reflux disease without esophagitis; E11.9 Type 2 diabetes mellitus without complications; G47.30 Sleep apnea, unspecified; Z88.8 Allergy status to other drugs, medicaments and biological substances; Z79.82 Long term (current) use of aspirin; Z79.899 Other long term (current) drug therapy; Z79.4 Long term (current) use of insulin; Z79.02 Long term (current) use of antithrombotics/antiplatelets; Z53.9 Procedure and treatment not carried out, unspecified reason

== ENCOUNTER → 2025-01-05 | Outpatient (CLI) | payer OTHER, MEDICAID ==
[~2025-01-05] MED LIST changes: +ISOVUE-370 76% 100 ML VIAL As Ordered ONE; +LANTINJ4; +SPIR12.9
== END ==
LOC: M RAD 08:39
PROVIDERS: ATTEND Student in an Organized Health Care Education/Training Program
DX: D72.829 Elevated white blood cell count, unspecified (principal)
CPT/HCPCS: 71260; 74177; Q9967

== ENCOUNTER → 2025-02-09 | Outpatient (CLI) | payer OTHER, MEDICAID ==
[~2025-02-09] MED LIST changes: -ISOVUE-370 76% 100 ML VIAL As Ordered ONE; +LINZ145C; +LOSA50TA28
== END ==
LOC: M RAD 08:59
PROVIDERS: ATTEND Internal Medicine Cardiovascular Disease
DX: I25.10 Atherosclerotic heart disease of native coronary artery without angina pectoris (principal); I73.9 Peripheral vascular disease, unspecified; Z72.0 Tobacco use; E04.1 Nontoxic single thyroid nodule; I65.23 Occlusion and stenosis of bilateral carotid arteries

== ENCOUNTER → 2025-02-15 | Outpatient (CLI) | payer OTHER, MEDICAID | LOC: M RAD 14:14 | PROVIDERS: ATTEND Internal Medicine Cardiovascular Disease | DX: I70.203 Unspecified atherosclerosis of native arteries of extremities, bilateral legs (principal) ==

== ENCOUNTER → 2025-04-06 | Outpatient (CLI) | payer OTHER, MEDICAID | LOC: M RAD 08:19 | PROVIDERS: ATTEND Internal Medicine | DX: E04.1 Nontoxic single thyroid nodule (principal) ==

== ENCOUNTER → 2025-04-11 | Outpatient (CLI) | payer OTHER, MEDICAID ==
[~2025-04-11] MED LIST changes: +ISOVUE-370 76% 100 ML VIAL As Ordered ONE
== END ==
LOC: M RAD 08:16
PROVIDERS: ATTEND Student in an Organized Health Care Education/Training Program
DX: Z53.9 Procedure and treatment not carried out, unspecified reason (principal)